=== PATIENT | female | born 1960 | race Caucasian/White ===

== ENCOUNTER 2021-02-07 23:24 | Emergency (ER) | payer MEDICARE, MEDICAID, SELFPAY ==
--- NOTE | ~2021-02-07 | XR_ITS ---
EXAMINATION: XR SHOULDER, LEFT CLINICAL INFORMATION: Dislocation or fracture of the shoulder COMPARISON: Chest x-ray 01/28/2020 TECHNIQUE: Three views of the left shoulder. FINDINGS: There is no fracture. No dislocation. There is degenerative change of the glenohumeral joint. The joint space is narrowed. There are bone spurs of the inferior glenoid and inferior humeral head. The acromioclavicular joint is normal. There are no soft tissue calcifications. XR/XR shoulder LT min 2V IMPRESSION: 1. No acute abnormality. 2. Moderate degenerative change of the glenohumeral joint.
[2021-02-07 23:35] VITALS: BP 127/89; PULSE 95; RESP 16; TEMP 36.7; O2SAT 93; BMI 24.2
[2021-02-07 23:40] VITALS: BP 118/78; PULSE 90; O2SAT 97
--- NOTE | 2021-02-07 23:42 | ED.EXTPRO ---
HPI - Extremity Problem General Chief complaint: Extremity Injury, Upper Stated complaint: L SHOULDER PAIN S/P FALL ? DISLOCATION Time Seen by Provider: 02/07/21 23:41 Source: patient Mode of arrival: EMS Limitations: no limitations History of Present Illness HPI Narrative: Patient with history of recurrent left shoulder dislocation tripped on her is on her puppy and fell on outstretched left arm complaining of pain in the left shoulder as in the past when she had dislocation, was given 100 mcg of fentanyl by EMS. No other injuries Related Data Allergies Allergy/AdvReac Type Severity Reaction Status Date / Time lactose [LACTOSE] Allergy Mild STOMACH Unverified 05/08/20 14:46 UPSET Review of Systems Review of Systems: Yes all other systems are reviewed and are negative PMFSH Social History Social History Advance Directives: No Advance Directives Information Provided: No Physical Exam Vital Signs: Vital Signs: Last Vital Signs Temp 98.1 F 02/07/21 23:35 Pulse 95 02/07/21 23:35 Resp 16 02/07/21 23:35 BP 127/89 02/07/21 23:35 Pulse Ox 93 02/07/21 23:35 Body Mass Index 24.2 Const: General: no acute distress and well developed Orientation/consciousness: patient oriented x3 HENMT: Head: Yes normal to inspection, Yes normocephalic and Yes atraumatic Neck: Neck: Yes full ROM and No midline deformity Chest: Chest palpation & inspection: normal inspection of the chest and normal palpation of entire chest wall Resp: Effort & Inspection: normal respiratory effort Cardio: Rate: regular rate Rhythm: regular rhythm Heart sounds: S1 normal heart sound present and S2 normal heart sound present Neuro: General: patient oriented x3 Extrem: Shoulder/upper arm images: 1. Normal contour of left shoulder normal sensation at the deltoid area painful movements but able to do it MDM - Extremity (Nontraumatic) MDM Narrative Medical decision making narrative: Patient's x-ray negative for fracture dislocation likely contusion will discharge patient home Discharge Plan Discharge Clinical Impression: Contusion of left shoulder Qualifiers: Encounter type: initial encounter Qualified Code(s): S40.012A - Contusion of left shoulder, initial encounter Patient Disposition: Home, Self-Care Instructions: Contusion in Adults (ED) Additional Instructions: Tylenol/Motrin for pain Rest at home Sling for support
--- NOTE | 2021-02-08 00:50 | PC.NURSE ---
PT DID NOT WAIT FOR SLING OR DISCHARGE PAPERWORK.
--- NOTE | 2021-02-08 00:56 | PC.NURSE ---
PT POSSIBLY LEFT WITH IV IN HAND, CALLED PHONE AND ASKED HER TO CALL ME BACK AND LET ME KNOW IF IT WAS REMOVED.
== END 2021-02-08 00:58 | disposition home or self-care (01) ==
PROVIDERS: Emergency Provider Internal Medicine; PCP Internal Medicine
DX: S40.012A Contusion of left shoulder, initial encounter (principal); W01.0XXA Fall on same level from slipping, tripping and stumbling without subsequent striking against object, initial encounter; Y93.9 Activity, unspecified; Y92.9 Unspecified place or not applicable; Y99.9 Unspecified external cause status
CPT/HCPCS: 73030; 99283

== ENCOUNTER 2021-02-10 22:20 | Emergency (ER) | payer MEDICARE, MEDICAID, SELFPAY ==
[2021-02-10 22:25] VITALS: RESP 22; BMI 23.3
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
[2021-02-10 22:37] VITALS: BP 112/69; PULSE 81; RESP 16; TEMP 36.1; O2SAT 99
--- NOTE | 2021-02-10 22:37 | PC.NURSE ---
AMBULATES WITH CANE WITH A STEADY GATE DENIES ANY SI/HI
== END 2021-02-10 23:06 | disposition left against medical advice (07) ==
LOC: HO.ED 23:03
PROVIDERS: Emergency Provider Emergency Medicine
DX: F41.9 Anxiety disorder, unspecified (principal)
CPT/HCPCS: 99283

== ENCOUNTER 2021-04-11 19:40 | Inpatient (IN) | payer MEDICARE, MEDICAID, SELFPAY ==
--- NOTE | ~2021-04-11 | XR_ITS ---
EXAMINATION: XR CHEST CLINICAL INFORMATION: Hypoxia COMPARISON: 02/17/2020 TECHNIQUE: Frontal view of the chest was obtained. FINDINGS: Enteric tube terminates in the stomach. Cardiac leads overlie the chest. The lungs are well expanded. Bronchial wall thickening noted. There is no focal consolidation, edema, or effusion. No pneumothorax. The cardiomediastinal silhouette is within normal limits. No acute osseous abnormality. XR/XR chest 1V IMPRESSION: No dense consolidation. Bronchial wall thickening can be seen with a small airways process such as asthma or atypical/viral infection.
[2021-04-11 20:05] VITALS: BP 105/97; BP 106/70; PULSE 105; PULSE 110; RESP 9; TEMP 37; O2SAT 98; O2SAT 99; BMI 21.7
[2021-04-11 20:19] VITALS: PULSE 104; RESP 9
[2021-04-11 20:33] LABS: MANUAL DIFF FLAG NO
[2021-04-11 20:35] LABS: Basophils Percent Auto 0.4 % (0-2); Eosinophils Absolute Auto 0.1 X10*3/uL (0.0-0.4); Eosinophils Percent Auto 0.6 % (0-4); Hematocrit 38.2 % (37-47); Hemoglobin 12.7 g/dl (12.0-16.0); Imm Gran Abs Auto 0.03 X10*3/uL (0.00-0.03); Imm Gran Pct Auto 0.3 % (0.0-0.4); Lymphocytes Absolute Auto 3.9 X10*3/uL (1.2-4.9); Lymphocytes Percent Auto 40.1 % (20-40); Mean Corpuscular HGB Conc 33.2 g/dl (31.0-35.0); Mean Corpuscular Hemoglobin 31.8 pg (27.0-33.0); Mean Corpuscular Volume 95.5 fL (80-98); Mean Platelet Volume 11.1 fL (9.4-12.3); Monocytes Absolute Auto 0.5 X10*3/uL (0.1-1.2); Monocytes Percent Auto 5.6 % (2-11); Neutrophils Absolute Auto 5.1 X10*3/uL (2.0-8.3); Platelet Count 264 X10*3/uL (160-400); Red Cell Distribution Width 14.4 % (11.0-16.0); White Blood Count 9.6 X10*3/uL (4.8-10.8)
[2021-04-11 20:42] LABS: Ethanol 228 mg/dL
[2021-04-11 20:46] LABS: Alanine Aminotransferase 18 U/L (0-31); Albumin Level 4.3 g/dL (3.5-5.0); Alkaline Phosphatase 100 U/L (39-117); Anion Gap 17 (12-20); Aspartate Amino Transferase 19 U/L (5-31); Bilirubin Total 0.2 mg/dL (0.0-1.0); Blood Urea Nitrogen 10 mg/dL (9-16); Calcium 8.5 mg/dL (8.4-10.2); Carbon Dioxide 18 mmol/L (22-29); Chloride 112 mmol/L (96-108); Creatinine Clr Calc Pharmacy 54.3; Estimated Glomerular Filt Rate > 60; Glucose Random 85 mg/dL (60-115); Potassium 3.6 mmol/L (3.3-5.1); Sodium 143 mmol/L (135-145); Total Protein 7.1 g/dL (6.5-8.0)
[2021-04-11 20:47] LABS: Lactic Acid 2.6 mmol/L (0.5-2.0)
--- NOTE | 2021-04-11 20:47 | PC.NURSE ---
Addendum entered by Jeremiah Villalobos 04/11/21 20:52: emptied 500mL from bladder Original Note: bladder scan completed 541 mL. straight cath done to empty bladder.
[2021-04-11 20:50] LABS: Troponin-I High Sensitivity < 3.5 ng/L (<3.5-17.0)
[2021-04-11 20:56] LABS: Salicylate < 5.0 mg/dL (15-30)
[2021-04-11 20:59] LABS: UPreg QC Valid YES; Urine Pregnancy NEGATIVE (NEGATIVE)
[2021-04-11] MEDS: Naloxone HCl Nasal 4 MG SPRAY NOSTRILALT (21:02)
[2021-04-11 21:12] LABS: COVID-19 Test Negative (Negative); IDNOW Serial# 9DD0AD1C
[2021-04-11 21:18] LABS: Amphetamine Screen Urine Not Detected (Not Detect); Barbiturates, Urine Not Detected (Not Detect); Benzodiazepines Screen Urine Not Detected (Not Detect); Cannabinoid Screen Urine Not Detected (Not Detect); Cocaine Screen Urine Not Detected (Not Detect); Fentanyl, urine Not Detected (Not Detect); Opiate Screen Urine Not Detected (Not Detect); Phencyclidine Screen Urine Not Detected (Not Detect)
--- NOTE | 2021-04-11 21:18 | ED.OVERDOSE ---
HPI - Overdose General Chief Complaint: Overdose Stated Complaint: od Time Seen by Provider: 04/11/21 21:08 Source: EMS Mode of arrival: EMS Limitations: altered mental status History of Present Illness HPI Narrative: Patient is brought to the emergency room by EMS. Seems that the patient overdosed on oxycodone and Percocet, approximately 40-50 pills about 19:30. Patient was given 1 dose of Narcan when she arrived to the emergency room, minimally responsive. Patient wakes up to sternal rub but is still very somnolent. Patient's oxygen saturation in the high 90s on room air. Related Data Allergies Allergy/AdvReac Type Severity Reaction Status Date / Time lactose [LACTOSE] Allergy Mild STOMACH Verified 02/08/21 00:38 UPSET Review of Systems Review of Systems: Yes Unobtainable due to mental condition and Unobtainable due to mental status PMFSH Past Medical History Medical History Anxiety Social History Social History (Updated 02/10/21 @ 22:46 by Mitzy Evans DO) Alcohol intake: current Alcohol intake frequency: holidays/special occasions only Patient Tobacco Use Status: Current someday Tobacco user Use of substances other than those prescribed or required for medical reasons: No Advance Directives: No Advance Directives Information Provided: No Physical Exam Vital Signs: Vital Signs: Last Vital Signs Temp 98.6 F 04/11/21 20:05 Pulse 85 04/11/21 22:00 Resp 18 04/11/21 22:00 BP 119/79 04/11/21 22:00 Pulse Ox 100 04/11/21 22:00 Body Mass Index 21.7 Const: Other: Appearance: Somnolent, responsive to sternal rub, positive gag reflex when NG tube was inserted Eyes: Pupils equal, round and reactive to light. ENT: Pharynx normal. Neck: Normal inspection. Neck supple. No lymph nodes noted. No crepitus CVS: Normal heart rate and rhythm. Pulses normal. Normal S1 and S2 Respiratory: No respiratory distress. Breath sounds normal. No Wheezing. No rales Abdomen: Soft and nontender. No rigidity. No distention. Skin: Skin warm and dry. Normal skin color. Normal skin turgor. Extremities: No lower extremity edema. Neuro: No obvious deficits, patient is very somnolent, difficult to evaluate. Course Course Course Narrative: We received the patient's acetaminophen level, it is 121 at 1.5 hours after ingesting Percocet and oxycodone. Poison control was contacted. At this time, it has been over an hour since the patient ingested the pills, gastric lavage on recommended. Since the patient is very somnolent, activated charcoal is not recommended per poison Control. Into hours will obtain another Tylenol level which will bring patient to 4 hours after ingestion of the medication. If the acetaminophen is a toxic level, we will treat with NAC Patient's acetaminophen level was obtained slightly after 3 hours of ingestion. At this time, the patient's acetaminophen level doubled, now 223. We will not wait for a 4 hour acetaminophen level, we will go ahead and start treatment with NAC I discussed the patient with Dr. Nation. Patient being admitted. At this time, patient is awake, alert, vitals are stable, no abdominal pain. Patient is under Section 12 MDM - Overdose Lab Data Result diagrams: 04/11/21 20:06 04/11/21 20:06 Labs: Lab Results 04/11/21 04/11/21 04/11/21 Range/Units 20:06 20:06 20:06 WBC 9.6 (4.8-10.8) X10*3/uL RBC 4.00 L (4.20-5.50) X10*6/uL Hgb 12.7 (12.0-16.0) g/dl Hct 38.2 (37-47) % MCV 95.5 (80-98) fL MCH 31.8 (27.0-33.0) pg MCHC 33.2 (31.0-35.0) g/dl RDW 14.4 (11.0-16.0) % Plt Count 264 (160-400) X10*3/uL MPV 11.1 (9.4-12.3) fL Immature Gran % (Auto) 0.3 (0.0-0.4) % Neut % (Auto) 53.0 (45-73) % Lymph % (Auto) 40.1 H (20-40) % [place] % (Auto) 5.6 (2-11) % Eos % (Auto) 0.6 (0-4) % Baso % (Auto) 0.4 (0-2) % Lymph # (Auto) 3.9 (1.2-4.9) X10*3/uL [place] # (Auto) 0.5 (0.1-1.2) X10*3/uL Eos # (Auto) 0.1 (0.0-0.4) X10*3/uL Baso # (Auto) 0.0 (0.0-0.2) X10*3/uL Abs Immat Gran (auto) 0.03 (0.00-0.03) X10*3/uL Absolute Neuts (auto) 5.1 (2.0-8.3) X10*3/uL Absolute Nucleated RBC 0.000 (0.0-0.012) X10*3/uL Nucleated RBC % (auto) 0.0 (0.0-0.2) /100WBC PT (9.9-13.0) SEC INR (0.9-1.1) O2 Saturation % ABG pH at Pt Temp (7.35-7.45) ABG pH (Temp Correct) (7.35-7.45) ABG pCO2 at Pt Temp (32-45) mmHg ABG pCO2 (Temp Corrct (32-45) mmHg ABG pO2 at Pt Temp (83-108) mmHg ABG pO2 (Temp Correct (83-108) ABG HCO3 (22-26) mmol/L ABG Base Excess (Actual) mmol/L Sodium 143 (135-145) mmol/L Potassium 3.6 (3.3-5.1) mmol/L Chloride 112 H (96-108) mmol/L Carbon Dioxide 18 L (22-29) mmol/L Anion Gap 17 (12-20) BUN 10 (9-16) mg/dL Creatinine 0.76 (0.5-1.4) mg/dL Estim Creat Clear Calc 54.3 Estimated GFR > 60 Random Glucose 85 (60-115) mg/dL Lactic Acid (0.5-2.0) mmol/L Lactic Acid Fup @ 2Hr (0.5-2.0) mmol/L Calcium 8.5 (8.4-10.2) mg/dL Magnesium (1.6-2.6) mg/dL Total Bilirubin 0.2 (0.0-1.0) mg/dL AST 19 (5-31) U/L ALT 18 (0-31) U/L Alkaline Phosphatase 100 (39-117) U/L Troponin I High Sens (<3.5-17.0) ng/L Total Protein 7.1 (6.5-8.0) g/dL Albumin 4.3 (3.5-5.0) g/dL Urine Test (NEGATIVE) Salicylates < 5.0 L (15-30) mg/dL Urine Opiates Screen (Not Detect) Urine Fentanyl Screen (Not Detect) Acetaminophen 121 H* (<30) mcg/mL Ur Barbiturates Screen (Not Detect) Ur Phencyclidine Scrn (Not Detect) Ur Amphetamines Screen (Not Detect) U Benzodiazepines Scrn (Not Detect) Urine Cocaine Screen (Not Detect) U Marijuana (THC) Screen (Not Detect) Ethyl Alcohol 228 mg/dL COVID-19 ([facility]) (Negative) COVID-19 Clin Com 04/11/21 04/11/21 04/11/21 Range/Units 20:06 20:06 20:49 WBC (4.8-10.8) X10*3/uL RBC (4.20-5.50) X10*6/uL Hgb (12.0-16.0) g/dl Hct (37-47) % MCV (80-98) fL MCH (27.0-33.0) pg MCHC (31.0-35.0) g/dl RDW (11.0-16.0) % Plt Count (160-400) X10*3/uL MPV (9.4-12.3) fL Immature Gran % (Auto) (0.0-0.4) % Neut % (Auto) (45-73) % Lymph % (Auto) (20-40) % [place] % (Auto) (2-11) % Eos % (Auto) (0-4) % Baso % (Auto) (0-2) % Lymph # (Auto) (1.2-4.9) X10*3/uL [place] # (Auto) (0.1-1.2) X10*3/uL Eos # (Auto) (0.0-0.4) X10*3/uL Baso # (Auto) (0.0-0.2) X10*3/uL Abs Immat Gran (auto) (0.00-0.03) X10*3/uL Absolute Neuts (auto) (2.0-8.3) X10*3/uL Absolute Nucleated RBC (0.0-0.012) X10*3/uL Nucleated RBC % (auto) (0.0-0.2) /100WBC PT (9.9-13.0) SEC INR (0.9-1.1) O2 Saturation % ABG pH at Pt Temp (7.35-7.45) ABG pH (Temp Correct) (7.35-7.45) ABG pCO2 at Pt Temp (32-45) mmHg ABG pCO2 (Temp Corrct (32-45) mmHg ABG pO2 at Pt Temp (83-108) mmHg ABG pO2 (Temp Correct (83-108) ABG HCO3 (22-26) mmol/L ABG Base Excess (Actual) mmol/L Sodium (135-145) mmol/L Potassium (3.3-5.1) mmol/L Chloride (96-108) mmol/L Carbon Dioxide (22-29) mmol/L Anion Gap (12-20) BUN (9-16) mg/dL Creatinine (0.5-1.4) mg/dL Estim Creat Clear Calc Estimated GFR Random Glucose (60-115) mg/dL Lactic Acid 2.6 H* (0.5-2.0) mmol/L Lactic Acid Fup @ 2Hr (0.5-2.0) mmol/L Calcium (8.4-10.2) mg/dL Magnesium (1.6-2.6) mg/dL Total Bilirubin (0.0-1.0) mg/dL AST (5-31) U/L ALT (0-31) U/L Alkaline Phosphatase (39-117) U/L Troponin I High Sens < 3.5 (<3.5-17.0) ng/L Total Protein (6.5-8.0) g/dL Albumin (3.5-5.0) g/dL Urine Test (NEGATIVE) Salicylates (15-30) mg/dL Urine Opiates Screen Not Detected (Not Detect) Urine Fentanyl Screen Not Detected (Not Detect) Acetaminophen (<30) mcg/mL Ur Barbiturates Screen Not Detected (Not Detect) Ur Phencyclidine Scrn Not Detected (Not Detect) Ur Amphetamines Screen Not Detected (Not Detect) U Benzodiazepines Scrn Not Detected (Not Detect) Urine Cocaine Screen Not Detected (Not Detect) U Marijuana (THC) Screen Not Detected (Not Detect) Ethyl Alcohol mg/dL COVID-19 ([facility]) (Negative) COVID-19 Clin Com 04/11/21 04/11/21 04/11/21 Range/Units 20:49 20:49 21:52 WBC (4.8-10.8) X10*3/uL RBC (4.20-5.50) X10*6/uL Hgb (12.0-16.0) g/dl Hct (37-47) % MCV (80-98) fL MCH (27.0-33.0) pg MCHC (31.0-35.0) g/dl RDW (11.0-16.0) % Plt Count (160-400) X10*3/uL MPV (9.4-12.3) fL Immature Gran % (Auto) (0.0-0.4) % Neut % (Auto) (45-73) % Lymph % (Auto) (20-40) % [place] % (Auto) (2-11) % Eos % (Auto) (0-4) % Baso % (Auto) (0-2) % Lymph # (Auto) (1.2-4.9) X10*3/uL [place] # (Auto) (0.1-1.2) X10*3/uL Eos # (Auto) (0.0-0.4) X10*3/uL Baso # (Auto) (0.0-0.2) X10*3/uL Abs Immat Gran (auto) (0.00-0.03) X10*3/uL Absolute Neuts (auto) (2.0-8.3) X10*3/uL Absolute Nucleated RBC (0.0-0.012) X10*3/uL Nucleated RBC % (auto) (0.0-0.2) /100WBC PT (9.9-13.0) SEC INR (0.9-1.1) O2 Saturation 100.0 % ABG pH at Pt Temp 7.25 L (7.35-7.45) ABG pH (Temp Correct) 7.27 L (7.35-7.45) ABG pCO2 at Pt Temp 34 (32-45) mmHg ABG pCO2 (Temp Corrct 33 (32-45) mmHg ABG pO2 at Pt Temp 278 H (83-108) mmHg ABG pO2 (Temp Correct 273 H (83-108) ABG HCO3 15 L (22-26) mmol/L ABG Base Excess (Actual) -10.3 mmol/L Sodium (135-145) mmol/L Potassium (3.3-5.1) mmol/L Chloride (96-108) mmol/L Carbon Dioxide (22-29) mmol/L Anion Gap (12-20) BUN (9-16) mg/dL Creatinine (0.5-1.4) mg/dL Estim Creat Clear Calc Estimated GFR Random Glucose (60-115) mg/dL Lactic Acid (0.5-2.0) mmol/L Lactic Acid Fup @ 2Hr (0.5-2.0) mmol/L Calcium (8.4-10.2) mg/dL Magnesium (1.6-2.6) mg/dL Total Bilirubin (0.0-1.0) mg/dL AST (5-31) U/L ALT (0-31) U/L Alkaline Phosphatase (39-117) U/L Troponin I High Sens (<3.5-17.0) ng/L Total Protein (6.5-8.0) g/dL Albumin (3.5-5.0) g/dL Urine Test NEGATIVE (NEGATIVE) Salicylates (15-30) mg/dL Urine Opiates Screen (Not Detect) Urine Fentanyl Screen (Not Detect) Acetaminophen (<30) mcg/mL Ur Barbiturates Screen (Not Detect) Ur Phencyclidine Scrn (Not Detect) Ur Amphetamines Screen (Not Detect) U Benzodiazepines Scrn (Not Detect) Urine Cocaine Screen (Not Detect) U Marijuana (THC) Screen (Not Detect) Ethyl Alcohol mg/dL COVID-19 ([facility]) Negative (Negative) COVID-19 Clin Com See Note 04/11/21 04/11/21 04/11/21 Range/Units 22:45 22:45 22:45 WBC (4.8-10.8) X10*3/uL RBC (4.20-5.50) X10*6/uL Hgb (12.0-16.0) g/dl Hct (37-47) % MCV (80-98) fL MCH (27.0-33.0) pg MCHC (31.0-35.0) g/dl RDW (11.0-16.0) % Plt Count (160-400) X10*3/uL MPV (9.4-12.3) fL Immature Gran % (Auto) (0.0-0.4) % Neut % (Auto) (45-73) % Lymph % (Auto) (20-40) % [place] % (Auto) (2-11) % Eos % (Auto) (0-4) % Baso % (Auto) (0-2) % Lymph # (Auto) (1.2-4.9) X10*3/uL [place] # (Auto) (0.1-1.2) X10*3/uL Eos # (Auto) (0.0-0.4) X10*3/uL Baso # (Auto) (0.0-0.2) X10*3/uL Abs Immat Gran (auto) (0.00-0.03) X10*3/uL Absolute Neuts (auto) (2.0-8.3) X10*3/uL Absolute Nucleated RBC (0.0-0.012) X10*3/uL Nucleated RBC % (auto) (0.0-0.2) /100WBC PT 12.2 (9.9-13.0) SEC INR 1.1 (0.9-1.1) O2 Saturation % ABG pH at Pt Temp (7.35-7.45) ABG pH (Temp Correct) (7.35-7.45) ABG pCO2 at Pt Temp (32-45) mmHg ABG pCO2 (Temp Corrct (32-45) mmHg ABG pO2 at Pt Temp (83-108) mmHg ABG pO2 (Temp Correct (83-108) ABG HCO3 (22-26) mmol/L ABG Base Excess (Actual) mmol/L Sodium (135-145) mmol/L Potassium (3.3-5.1) mmol/L Chloride (96-108) mmol/L Carbon Dioxide (22-29) mmol/L Anion Gap (12-20) BUN (9-16) mg/dL Creatinine (0.5-1.4) mg/dL Estim Creat Clear Calc Estimated GFR Random Glucose (60-115) mg/dL Lactic Acid (0.5-2.0) mmol/L Lactic Acid Fup @ 2Hr 3.0 H* (0.5-2.0) mmol/L Calcium (8.4-10.2) mg/dL Magnesium 1.9 (1.6-2.6) mg/dL Total Bilirubin (0.0-1.0) mg/dL AST (5-31) U/L ALT (0-31) U/L Alkaline Phosphatase (39-117) U/L Troponin I High Sens (<3.5-17.0) ng/L Total Protein (6.5-8.0) g/dL Albumin (3.5-5.0) g/dL Urine Test (NEGATIVE) Salicylates (15-30) mg/dL Urine Opiates Screen (Not Detect) Urine Fentanyl Screen (Not Detect) Acetaminophen 223 H* (<30) mcg/mL Ur Barbiturates Screen (Not Detect) Ur Phencyclidine Scrn (Not Detect) Ur Amphetamines Screen (Not Detect) U Benzodiazepines Scrn (Not Detect) Urine Cocaine Screen (Not Detect) U Marijuana (THC) Screen (Not Detect) Ethyl Alcohol mg/dL COVID-19 ([facility]) (Negative) COVID-19 Clin Com ECG Data Attestation: I personally reviewed and interpreted this ECG as follows: (Normal sinus rhythm, heart rate 100, new T-wave abnormalities in V3 V4, QTC 477) Critical Care Time Critical Care Time Critical Care Time: Yes Total Critical Care Time: 60 Attestation: 60 minutes were spent stabilizing the patient, consoles, in direct patient care Discharge Plan Discharge Clinical Impression: Suicide attempt, Acetaminophen overdose Patient Disposition: Admitted As Inpatient
[2021-04-11 21:23] LABS: Acetaminophen LAB 121 mcg/mL (<30)
--- NOTE | 2021-04-11 21:25 | ECG_ITS ---
Test Reason : OD Blood Pressure : / mmHG Vent. Rate : 100 BPM Atrial Rate : 100 BPM P-R Int : 132 ms QRS Dur : 088 ms QT Int : 370 ms P-R-T Axes : 063 066 077 degrees QTc Int : 477 ms Normal sinus rhythm T wave abnormality, consider anterior ischemia Prolonged QT Abnormal ECG When compared with ECG of 19-FEB-2020 20:16, T wave inversion now evident in Anterior leads Referred By: Enid Cabrera Electronically Signed By:SERENA ECHEVERRIA
--- NOTE | 2021-04-11 21:29 | PC.NURSE ---
Patient getting more drowsy and not responding to sternal rubs. MD aware. Nasogastric tube placed to empty stomach. Patient tolerated the procedure well
[2021-04-11 21:34] VITALS: O2SAT 100
[2021-04-11 21:56] LABS: ABG Refer to POC result
[2021-04-11 21:57] LABS: ABG Base Excess -10.3 mmol/L; ABG HCO3 15 mmol/L (22-26); ABG pCO2 34 mmHg (32-45); ABG pCO2 TC 33 mmHg (32-45); ABG pH 7.25 (7.35-7.45); ABG pH TC 7.27 (7.35-7.45); ABG pO2 278 mmHg (83-108); ABG pO2 TC 273 (83-108)
[2021-04-11 22:00] VITALS: BP 119/79; PULSE 85; RESP 18; O2SAT 100
[2021-04-11 22:31] LABS: Reflex Lactate? Lactic Acid Added
--- NOTE | 2021-04-11 22:40 | PC.NURSE ---
Poison control called for an update on patient. Recommended a pt/inr level and lactic needed to be drawn
[2021-04-11] MEDS: 0.9 % Sodium Chloride 1,000 ML 999 ML IVCONT (22:42)
[2021-04-11 22:59] LABS: INTERNATIONAL NORM RATIO 1.1 (0.9-1.1); Prothrombin Time 12.2 SEC (9.9-13.0)
--- NOTE | 2021-04-11 23:15 | PC.NURSE ---
Patient is more responsive and answering questions. She has more affect and is more oriented.
[2021-04-11 23:26] LABS: Acetaminophen LAB 223 mcg/mL (<30)
[2021-04-11 23:39] LABS: Magnesium 1.9 mg/dL (1.6-2.6)
[2021-04-12] VITALS (15 sets, daily range): BP systolic 107–143; BP diastolic 73–85; PULSE 73–101; RESP 13–20; TEMP 36.4–36.8; O2SAT 97–100
[2021-04-12 00:50] LABS: Reflex Lactate? 2 Y
[2021-04-12] MEDS: 0.9 % Sodium Chloride 1,000 ML 999 ML IVCONT (01:15)
[2021-04-12] MEDS: ondansetron HCL 4 MG/2 ML VIAL IVPUSH ×2 (01:33→08:41)
--- NOTE | 2021-04-12 01:55 | P.HPHOSP_ITS ---
History of Present Illness Date of Service: 04/12/21 Chief Complaint: Suicide attempt, drug overdose 61-year-old female with history of prior suicide attempt, prior inpatient psychiatry admission, depression, anxiety, chronic pain on chronic opioids, low blood pressure, who presented with intentional overdose and suicide attempt. History is from the patient and from ED notes, but patient is a somewhat poor historian, does not answer all of my questions. Patient endorses that she was trying to kill herself today. She states that she had a recent break-up with her boyfriend, currently she has no place to live because she use live with him, she intentionally took some pills (she may have told EMS that it was oxycodone and Percocet about 40-50 pills at about 1930 on 04/11/2021). She did tell me ?my daughter and I... And then she stops talking, then she is tells me ?do not want to talk about it . EN route to the ED she was given 1 dose of Narcan, when she arrived to the ED she was minimally responsive, poison control was contacted, no charcoal or gastric lavage was performed because it had been 4 hours after ingestion. Tylenol levels were taken, the patient was found to have elevated acetaminophen levels, therefore N-acetylcysteine was started on the patient. The patient became more alert, started having dry heaves, NG tube was inserted, and about 500 cc of brown fluid was suctioned from her stomach. By the time I arrived to the patient's room, she was alert, in reported to me what was mentioned above. She says that she was trying to kill herself, and endorse that she has had prior suicide attempt and has been placed in inpatient psychiatry before. However, she does not want to go into any further details with me at this time. In the ED currently, she is satting 97% on 4 L nasal cannula. Otherwise vitals are unremarkable at this time. Her respiratory rate was as low as 9 at 1 point but it is normal now at 18. Pertinent labs in the ED include: ABG with pH of 7.25 and normal pCO2 and O2, but with a bicarb of 15 (representing metabolic acidosis); her lactic acid level was elevated at 2.6 (repeat was 3.0), acetaminophen level is elevated at 223., UDS was otherwise negative. No chest x-ray was performed up to this point, and the patient is requiring 4 L nasal cannula, therefore chest x-ray is ordered by myself and is pending per this note. Otherwise, patient is being admitted for intentional drug overdose, suicide attempt, hypoxia. Review of Systems Review of Systems: I am unable to obtain a review of systems because she is not answering many of my questions. FOR[facility] Medical History (Updated 04/12/21 @ 02:41 by Chuy Blum MD) Anxiety Chronic pain Depression Low blood pressure Pertinent family history: Unable to obatin due to patient not answering my questions. Surgical History (Updated 04/12/21 @ 02:04 by Chuy Blum MD) H/O knee surgery Previous back surgery Social History (Updated 04/12/21 @ 02:04 by Chuy Blum MD) Alcohol intake: current Alcohol intake frequency: holidays/special occasions only Patient Tobacco Use Status: Current someday Tobacco user Use of substances other than those prescribed or required for medical reasons: No Advance Directives: No Advance Directives Information Provided: No Meds Allergies Allergy/AdvReac Type Severity Reaction Status Date / Time lactose [LACTOSE] Allergy Mild STOMACH Verified 02/08/21 00:38 UPSET Active Medications: Current Medications Generic Name Dose Route Start Last Admin Trade Name Freq PRN Reason Stop Dose Admin Acetylcysteine 2,450 mg/ 512.25 mls @ 128.063 mls/hr 04/12/21 01:00 04/12/21 01:16 Dextrose IV 04/12/21 04:59 128.06 mls/hr ONCE ONE Administration Acetylcysteine 4,870 mg/ 1,024.35 mls @ 64.022 mls/hr 04/12/21 05:00 Dextrose IV 04/12/21 20:59 ONCE ONE Sodium Chloride 1,000 mls @ 100 mls/hr 04/12/21 00:45 04/12/21 01:33 Ns IVCONT 04/12/21 10:44 100 mls/hr .Q10H AWA Administration Sodium Bicarbonate 50 meq 04/12/21 00:45 Sodium Bicarbonate 8.4% 50 Meq/50 Ml Vial IVPUSH 04/12/21 02:46 Q2H AWA Sodium Chloride 3 ml 04/12/21 08:00 0.9 % Sodium Chloride Flush 3 Ml Syringe IVFLUSH QSHIFT [facility] Home Medications Medication Instructions Recorded Confirmed Last Taken Type carisoprodol 350 mg tablet 1 tab PO TID PRN 04/12/21 04/12/21 Unknown History desipramine 100 mg tablet 2 tab PO BEDTIME 04/12/21 04/12/21 Unknown History hydroxyzine HCl 25 mg tablet 1 tab PO BEDTIME 04/12/21 04/12/21 Unknown History ibuprofen 800 mg tablet 1 tab PO TID PRN 04/12/21 04/12/21 Unknown History midodrine 2.5 mg tablet 1 tab PO BID 04/12/21 04/12/21 Unknown History naproxen 250 mg tablet 1 tab PO BID 04/12/21 04/12/21 Unknown History oxycodone myristate 18 mg capsule 1 cap PO Q12H 04/12/21 04/12/21 Unknown History sprinkle extended release 12hr(DON'T CRUSH) (Xtampza ER) oxycodone-acetaminophen 7.5 mg-325 1 tab PO Q6H PRN 04/12/21 04/12/21 Unknown History mg tablet pantoprazole 40 mg tablet,delayed 1 tab PO DAILY 04/12/21 04/12/21 Unknown History release topiramate 100 mg tablet 1 tab PO QID 04/12/21 04/12/21 Unknown History Physical Exam Vital Signs and Narrative: Vital Signs: Last Vital Signs Temp 98.6 F 04/11/21 20:05 Pulse 99 04/12/21 00:39 Resp 15 04/12/21 00:39 BP 119/73 04/12/21 00:39 Pulse Ox 97 04/12/21 00:39 Body Mass Index 21.7 Const: General: well developed, alert and other (Tearful during my exam) Orientation/consciousness: oriented to person HENMT: Face and sinus: Yes normal facial exam and Yes face symmetric Mouth: Normal oral and palatal mucosa present and moist mucous membranes Throat: Yes posterior oropharynx normal and Yes tonsils normal Eyes: General: appearance normal, both eyes and all related structures Alignment and Position: alignment normal and position normal Sclerae: sclerae normal Pupils: Equal, round and reactive pupils present EOM: EOMs intact bilaterally Neck: Yes normal visual inspection, Yes full ROM and Yes no lymphadenopathy Lymphatic: no lymphadenopathy noted Resp: Effort & Inspection: normal respiratory effort and able to speak in com plete sentences Auscultation: no crackles, no rales, no rhonchi, no wheezes and diminished lung sounds Cardio: Rate: regular rate Rhythm: regular rhythm Heart sounds: S1 normal heart sound present, S2 normal heart sound present, no murmurs and no rubs GI: Inspection: No distended Palpation (GI): Soft to palpation and nontender Percussion: No tympanic to percussion Auscultation: normal bowel sounds Skin: Rashes: no rashes Trauma: no lacerations or abrasions Wounds: no wounds Neuro: General: oriented to person Cranial nerves: Yes CN's II-XII intact bilaterally, Yes Equal, round and reactive pupils present and Yes Bilaterally intact EOM present Extrem: General: Yes full ROM and Yes no pedal edema Psych: Appearance: disheveled Mental Status: mental status grossly normal Speech and movement: Normal speech and movement present Affect: Sad affect present Attitude: Refuses to answer (attititude/behavior) Thought process: Normal thought process present Results Labs CBC and Chem 7: 04/11/21 20:06 04/11/21 20:06 Labs: Laboratory Results - last 24 hr 04/11/21 04/11/21 04/11/21 20:06 20:06 20:06 MCV 95.5 MCH 31.8 MCHC 33.2 RDW 14.4 Plt Count 264 MPV 11.1 Immature Gran % (Auto) 0.3 Neut % (Auto) 53.0 Lymph % (Auto) 40.1 H [place] % (Auto) 5.6 Eos % (Auto) 0.6 Baso % (Auto) 0.4 Lymph # (Auto) 3.9 [place] # (Auto) 0.5 Eos # (Auto) 0.1 Baso # (Auto) 0.0 Abs Immat Gran (auto) 0.03 Absolute Neuts (auto) 5.1 Absolute Nucleated RBC 0.000 Nucleated RBC % (auto) 0.0 PT INR O2 Saturation ABG pH at Pt Temp ABG pH (Temp Correct) ABG pCO2 at Pt Temp ABG pCO2 (Temp Corrct ABG pO2 at Pt Temp ABG pO2 (Temp Correct ABG HCO3 ABG Base Excess (Actual) Anion Gap 17 Estim Creat Clear Calc 54.3 Estimated GFR > 60 Random Glucose 85 Lactic Acid Lactic Acid Fup @ 2Hr Calcium 8.5 Magnesium Total Bilirubin 0.2 AST 19 ALT 18 Alkaline Phosphatase 100 Troponin I High Sens Total Protein 7.1 Albumin 4.3 Urine Test Salicylates < 5.0 L Urine Opiates Screen Urine Fentanyl Screen Acetaminophen 121 H* Ur Barbiturates Screen Ur Phencyclidine Scrn Ur Amphetamines Screen U Benzodiazepines Scrn Urine Cocaine Screen U Marijuana (THC) Screen Ethyl Alcohol 228 COVID-19 ([facility]NE [facility]IE) COVID-19 [employer] 04/11/21 04/11/21 04/11/21 20:06 20:06 20:49 MCV MCH MCHC RDW Plt Count MPV Immature Gran % (Auto) Neut % (Auto) Lymph % (Auto) [place] % (Auto) Eos % (Auto) Baso % (Auto) Lymph # (Auto) [place] # (Auto) Eos # (Auto) Baso # (Auto) Abs Immat Gran (auto) Absolute Neuts (auto) Absolute Nucleated RBC Nucleated RBC % (auto) PT INR O2 Saturation ABG pH at Pt Temp ABG pH (Temp Correct) ABG pCO2 at Pt Temp ABG pCO2 (Temp Corrct ABG pO2 at Pt Temp ABG pO2 (Temp Correct ABG HCO3 ABG Base Excess (Actual) Anion Gap Estim Creat Clear Calc Estimated GFR Random Glucose Lactic Acid 2.6 H* Lactic Acid Fup @ 2Hr Calcium Magnesium Total Bilirubin AST ALT Alkaline Phosphatase Troponin I High Sens < 3.5 Total Protein Albumin Urine Test Salicylates Urine Opiates Screen Not Detected Urine Fentanyl Screen Not Detected Acetaminophen Ur Barbiturates Screen Not Detected Ur Phencyclidine Scrn Not Detected Ur Amphetamines Screen Not Detected U Benzodiazepines Scrn Not Detected Urine Cocaine Screen Not Detected U Marijuana (THC) Screen Not Detected Ethyl Alcohol COVID-19 ([facility]IE) COVID-19 [employer] 04/11/21 04/11/21 04/11/21 20:49 20:49 21:52 MCV MCH MCHC RDW Plt Count MPV Immature Gran % (Auto) Neut % (Auto) Lymph % (Auto) [place] % (Auto) Eos % (Auto) Baso % (Auto) Lymph # (Auto) [place] # (Auto) Eos # (Auto) Baso # (Auto) Abs Immat Gran (auto) Absolute Neuts (auto) Absolute Nucleated RBC Nucleated RBC % (auto) PT INR O2 Saturation 100.0 ABG pH at Pt Temp 7.25 L ABG pH (Temp Correct) 7.27 L ABG pCO2 at Pt Temp 34 ABG pCO2 (Temp Corrct 33 ABG pO2 at Pt Temp 278 H ABG pO2 (Temp Correct 273 H ABG HCO3 15 L ABG Base Excess (Actual) -10.3 Anion Gap Estim Creat Clear Calc Estimated GFR Random Glucose Lactic Acid Lactic Acid Fup @ 2Hr Calcium Magnesium Total Bilirubin AST ALT Alkaline Phosphatase Troponin I High Sens Total Protein Albumin Urine Test NEGATIVE Salicylates Urine Opiates Screen Urine Fentanyl Screen Acetaminophen Ur Barbiturates Screen Ur Phencyclidine Scrn Ur Amphetamines Screen U Benzodiazepines Scrn Urine Cocaine Screen U Marijuana (THC) Screen Ethyl Alcohol COVID-19 ([facility]) Negative COVID-19 Clin Com See Note 04/11/21 04/11/21 04/11/21 22:45 22:45 22:45 MCV MCH MCHC RDW Plt Count MPV Immature Gran % (Auto) Neut % (Auto) Lymph % (Auto) [place] % (Auto) Eos % (Auto) Baso % (Auto) Lymph # (Auto) [place] # (Auto) Eos # (Auto) Baso # (Auto) Abs Immat Gran (auto) Absolute Neuts (auto) Absolute Nucleated RBC Nucleated RBC % (auto) PT 12.2 INR 1.1 O2 Saturation ABG pH at Pt Temp ABG pH (Temp Correct) ABG pCO2 at Pt Temp ABG pCO2 (Temp Corrct ABG pO2 at Pt Temp ABG pO2 (Temp Correct ABG HCO3 ABG Base Excess (Actual) Anion Gap Estim Creat Clear Calc Estimated GFR Random Glucose Lactic Acid Lactic Acid Fup @ 2Hr 3.0 H* Calcium Magnesium 1.9 Total Bilirubin AST ALT Alkaline Phosphatase Troponin I High Sens Total Protein Albumin Urine Test Salicylates Urine Opiates Screen Urine Fentanyl Screen Acetaminophen 223 H* Ur Barbiturates Screen Ur Phencyclidine Scrn Ur Amphetamines Screen U Benzodiazepines Scrn Urine Cocaine Screen U Marijuana (THC) Screen Ethyl Alcohol COVID-19 ([facility]) COVID-19 Clin Com Assessment and Plan (1) Suicide attempt by drug overdose: Status: Acute (2) Acetaminophen overdose: Qualifiers: Encounter type: initial encounter Injury intent: intentional self-harm Qualified Code(s): T39.1X2A - Poisoning by 4-Aminophenol derivatives, intentional self-harm, initial encounter Status: Acute (3) Hypoxia: Status: Acute (4) Lactic acidosis: Status: Acute (5) Metabolic acidosis: Status: Acute (6) Anxiety: Status: Acute (7) Depression: Status: Acute (8) Chronic pain: Status: Acute (9) Low blood pressure: Status: Acute Suicide attempt by overdose: -EMS reports that the patient took approximately 40-50 pills of oxycodone and Percocet at about 1930 on 04/11/2021 -patient did require 1 Narcan, but otherwise does not need Narcan drip. Currently, she is alert and tearful -she reports that she has had prior suicide attempt, prior inpatient psychiatry hospitalization -she also reports that she had a recent break-up with her boyfriend, and currently does not have a place to live, but otherwise ?does not want to talk about it ? -I am holding her chronic narcotic and acetaminophen containing medications for now -treatment of acetaminophen overdose as per below -psychiatry consult placed Acetaminophen overdose: -secondary to suicide attempt as per above -patient started on N-acetylcysteine drip -patient does not have any biochemical evidence of hepatic failure (INR was normal at 1.1), therefore we will use the 21 hour IV protocol of N- acetylcysteine as follows: 150 mg/kg loading dose over 60 minutes, followed by 50 mg/kg infused over 4 hours, with the final 100 mg/kg infused over the remaining 16 hours. (finishes around 2100 on 04/12/21). -Acetaminophen level ordered for 04/12/21 at 2200. Hypoxia: -currently the patient is on 4 L nasal cannula -I am concerned about aspiration, given the fact that her NG tube is suctioning large amounts of gastric content out of her stomach -chest x-ray ordered (pending per this note) -if chest x-ray is positive for pneumonia, will start IV antibiotics Metabolic acidosis/ Lactic acidosis: -lactic acid level in the ED was 2.6, repeat was 3.0 -ABG revealed pH 7.25 -likely secondary to overdose attempt / acetaminophen toxicity/hypoxia -chest x-ray to rule out pneumonia as per above, if positive for pneumonia then will start on IV antibiotics -lactic acid level and ABG in the morning ordered History of anxiety/ depression: -I am holding all oral medications for now given the fact that she appears to have large amounts of gastric contents being suctioned out of her stomach -currently she appears somewhat tearful when sleepy -morning team can restart patient's home antianxiety medications as needed Chronic pain: -patient has chronic back pain, knee pain, shoulder pain -she was being treated with narcotics, I will hold this for now given her overdose attempt and acetaminophen toxicity as per above -morning team can restart as appropriate, however, patient may need to wait until her acetaminophen levels returned to normal (after the N acetylcysteine drip has completed his course, as per above) Low blood pressure: -patient was taking midodrine at home, however, I have held oral medications for now given the fact that she has large months of gastric contents being section of her stomach -morning team can restart her oral medications as appropriate FEN: NPO, IVF at 75 cc/hr x 1 L total CODE STATUS: FULL CODE DISPO: Admit to Observation (may need to be transitioned to inpatient) Quality Stroke Does the patient have a stroke diagnosis?: No VTE Prior VTE?: No VTE Risk Level:: Medical - low VTE Device Contraindication: N/A - Device Ordered VTE Drug Contraindication: Treatment Not Indicated
[2021-04-12 02:54] LABS: ~Lactic Acid-LAB USE ONLY 2.1 mmol/L (0.5-2.0)
[2021-04-12] MEDS: Sodium Bicarbonate 8.4% 50 MEQ/50 ML VIAL IVPUSH ×2 (03:47→06:17)
[2021-04-12] MEDS: 0.9 % Sodium Chloride 1,000 ML 75 ML IV (04:49)
[2021-04-12 06:13] LABS: Lactic Acid 1.3 mmol/L (0.5-2.0)
[2021-04-12 06:47] LABS: Alanine Aminotransferase 16 U/L (0-31); Albumin Level 3.5 g/dL (3.5-5.0); Alkaline Phosphatase 85 U/L (39-117); Anion Gap 15 (12-20); Aspartate Amino Transferase 16 U/L (5-31); Bilirubin Total < 0.2 mg/dL (0.0-1.0); Blood Urea Nitrogen 6 mg/dL (9-16); Calcium 7.1 mg/dL (8.4-10.2); Carbon Dioxide 18 mmol/L (22-29); Chloride 110 mmol/L (96-108); Creatinine Clr Calc Pharmacy 71.1; Estimated Glomerular Filt Rate > 60; Glucose Random 89 mg/dL (60-115); Potassium 3.2 mmol/L (3.3-5.1); Sodium 140 mmol/L (135-145); Total Protein 5.8 g/dL (6.5-8.0)
--- NOTE | 2021-04-12 07:22 | PC.NURSE ---
report taken from [facility] pt resting in stretcher, alert to verbal stimuli, rr even unlabored on 3l nc. denies pain at this time. affect depressed. sitter in place for safety. awaiting medical admission d/t elevated blood labs r/t medication overdose. rt at bedside for routine bg. wctm for dc needs.
[2021-04-12 07:46] LABS: Analysis Performed on: WHOLE BLOOD; Ethylene Glycol NONE DETECTED (NONE DETECTED); Methyl Alcohol Level NONE DETECTED (NONE DETECTED)
--- NOTE | 2021-04-12 08:02 | PC.NURSE ---
PER POISON CONTROL, PT TO HAVE REPEAT LFT, INR AND TYLENOL LEVEL AT 1930 BEFORE THIRD BAG OF ACETADOTE FINISHES, HOSPITALIST AWARE.
--- NOTE | 2021-04-12 11:22 | P.PNIM_ITS ---
Progress Note: A&P (1) Metabolic acidosis: Status: Acute <La Quiros NP - Last Filed: 04/12/21 12:29> (2) Lactic acidosis: Status: Acute <La Quiros NP - Last Filed: 04/12/21 12:29> (3) Suicide attempt by drug overdose: Status: Acute <La Quiros NP - Last Filed: 04/12/21 12:29> Assessment and Plan: 61 year old women admitted after a suicide attempt by overdose. EMS reports that the patient took approximately 40-50 pills of oxycodone and Percocet at about 1930 on 04/11/2021. Patient did require 1 Narcan, Currently, she is alert and tearful, she reports that she has had prior suicide attempt, prior inpatient psychiatry hospitalization, she also reports that she had a recent break-up with her boyfriend, and currently does not have a place to live, but otherwise ?does not want to talk about it ? Acetaminophen overdose -secondary to suicide attempt as per above -patient started on N-acetylcysteine drip -patient does not have any biochemical evidence of hepatic failure (INR was normal at 1.1), therefore we will use the 21 hour IV protocol of N- acetylcysteine as follows:? 150 mg/kg loading dose over 60 minutes, followed by 50 mg/kg infused over 4 hours, with the final 100 mg/kg infused over the remaining 16 hours. (finishes around 2100 on 04/12/21). -Acetaminophen level ordered for 04/12/21 at 2200. Hypoxia. resolved -currently the patient is on 4 L nasal cannula There was a question of aspiration initially however no consolidation seen Metabolic acidosis/ Lactic acidosis -lactic acid level in the ED was 2.6, repeat was 3.0 -ABG revealed pH 7.25 -likely secondary to overdose attempt / acetaminophen toxicity/hypoxia trend History of anxiety/ depression Hold medications for now in view of NGT Chronic pain -patient has chronic back pain, knee pain, shoulder pain hold narcotic pain medication for now Low blood pressure: BP meds held, restart when BP stable DVT prophyalxis with heparin <La Quiros NP - Last Filed: 04/12/21 12:29> Subjective Subjective Date of Service: 04/12/21 <aL Quiros NP - Last Filed: 04/12/21 12:29> 04/12/21 <Susan Griffin MD - Last Filed: 04/12/21 13:26> Interval History: Follow up acetaminophen OD feeling nausea no longer suicidal <La Quiros NP - Last Filed: 04/12/21 12:29> Physical Exam Vital Signs: Vital Signs: Last Vital Signs Temp 97.6 F 04/12/21 10:53 Pulse 79 04/12/21 10:53 Resp 19 04/12/21 10:53 BP 138/79 04/12/21 10:53 Pulse Ox 100 04/12/21 10:53 Body Mass Index 21.7 <La Quiros NP - Last Filed: 04/12/21 12:29> Appearing in no acute distress NGT in place lung sounds are clear to auscultation heart regular rate rhythm, clear S1, S2 positive bowel sounds, abdomen is soft, nontender neuro patient is alert x3, no focal deficits <La Quiros NP - Last Filed: 04/12/21 12:29> Objective Data Current Medications Generic Name Dose Route Start Last Admin Trade Name Freq PRN Reason Stop Dose Admin Acetylcysteine 4,870 mg/ 1,024.35 mls @ 64.022 mls/hr 04/12/21 05:00 04/12/21 05:35 Dextrose IV 04/12/21 20:59 64.02 mls/hr ONCE ONE Administration Sodium Chloride 1,000 mls @ 75 mls/hr 04/12/21 02:45 04/12/21 04:49 Ns IV 04/12/21 16:04 75 mls/hr .[id number] AWA Administration Ondansetron HCl 4 mg 04/12/21 04:53 04/12/21 08:41 Ondansetron Hcl 4 Mg/2 Ml Vial IVPUSH 4 mg Q6H PRN Administration Nausea Sodium Chloride 3 ml 04/12/21 08:00 04/12/21 07:22 0.9 % Sodium Chloride Flush 3 Ml Syringe IVFLUSH Not Given QSHIFT AWA <La Quiros NP - Last Filed: 04/12/21 12:29> Labs CBC & Chem 7: : 04/11/21 20:06 04/12/21 05:53 <La Quiros NP - Last Filed: 04/12/21 12:29> Labs: Laboratory Results - last 24 hr 04/11/21 04/11/21 04/11/21 20:06 20:06 20:06 MCV 95.5 MCH 31.8 MCHC 33.2 RDW 14.4 Plt Count 264 MPV 11.1 Immature Gran % (Auto) 0.3 Neut % (Auto) 53.0 Lymph % (Auto) 40.1 H [place] % (Auto) 5.6 Eos % (Auto) 0.6 Baso % (Auto) 0.4 Lymph # (Auto) 3.9 [place] # (Auto) 0.5 Eos # (Auto) 0.1 Baso # (Auto) 0.0 Abs Immat Gran (auto) 0.03 Absolute Neuts (auto) 5.1 Absolute Nucleated RBC 0.000 Nucleated RBC % (auto) 0.0 PT INR O2 Saturation ABG pH at Pt Temp ABG pH (Temp Correct) ABG pCO2 at Pt Temp ABG pCO2 (Temp Corrct ABG pO2 at Pt Temp ABG pO2 (Temp Correct ABG HCO3 ABG Base Excess (Actual) Anion Gap 17 Estim Creat Clear Calc 54.3 Estimated GFR > 60 Random Glucose 85 Lactic Acid Lactic Acid Fup @ 2Hr Lactic Acid Fup @ 4Hr Calcium 8.5 Magnesium Total Bilirubin 0.2 AST 19 ALT 18 Alkaline Phosphatase 100 Troponin I High Sens Total Protein 7.1 Albumin 4.3 Urine Test Salicylates < 5.0 L Urine Opiates Screen Urine Fentanyl Screen Acetaminophen 121 H* Ur Barbiturates Screen Ur Phencyclidine Scrn Ur Amphetamines Screen U Benzodiazepines Scrn Urine Cocaine Screen U Marijuana (THC) Screen Ethylene Glycol Volat Analys Perform On Ethyl Alcohol 228 Methyl Alcohol Level COVID-19 ([facility]) COVID-19 Clin Com 04/11/21 04/11/21 04/11/21 20:06 20:06 20:49 MCV MCH MCHC RDW Plt Count MPV Immature Gran % (Auto) Neut % (Auto) Lymph % (Auto) [place] % (Auto) Eos % (Auto) Baso % (Auto) Lymph # (Auto) [place] # (Auto) Eos # (Auto) Baso # (Auto) Abs Immat Gran (auto) Absolute Neuts (auto) Absolute Nucleated RBC Nucleated RBC % (auto) PT INR O2 Saturation ABG pH at Pt Temp ABG pH (Temp Correct) ABG pCO2 at Pt Temp ABG pCO2 (Temp Corrct ABG pO2 at Pt Temp ABG pO2 (Temp Correct ABG HCO3 ABG Base Excess (Actual) Anion Gap Estim Creat Clear Calc Estimated GFR Random Glucose Lactic Acid 2.6 H* Lactic Acid Fup @ 2Hr Lactic Acid Fup @ 4Hr Calcium Magnesium Total Bilirubin AST ALT Alkaline Phosphatase Troponin I High Sens < 3.5 Total Protein Albumin Urine Test Salicylates Urine Opiates Screen Not Detected Urine Fentanyl Screen Not Detected Acetaminophen Ur Barbiturates Screen Not Detected Ur Phencyclidine Scrn Not Detected Ur Amphetamines Screen Not Detected U Benzodiazepines Scrn Not Detected Urine Cocaine Screen Not Detected U Marijuana (THC) Screen Not Detected Ethylene Glycol Volat Analys Perform On Ethyl Alcohol Methyl Alcohol Level COVID-19 (ANNE MARIE) [facility] 04/11/21 04/11/21 04/11/21 20:49 20:49 21:52 MCV MCH MCHC RDW Plt Count MPV Immature Gran % (Auto) Neut % (Auto) Lymph % (Auto) [place] % (Auto) Eos % (Auto) Baso % (Auto) Lymph # (Auto) [place] # (Auto) Eos # (Auto) Baso # (Auto) Abs Immat Gran (auto) Absolute Neuts (auto) Absolute Nucleated RBC Nucleated RBC % (auto) PT INR O2 Saturation 100.0 ABG pH at Pt Temp 7.25 L ABG pH (Temp Correct) 7.27 L ABG pCO2 at Pt Temp 34 ABG pCO2 (Temp Corrct 33 ABG pO2 at Pt Temp 278 H ABG pO2 (Temp Correct 273 H ABG HCO3 15 L ABG Base Excess (Actual) -10.3 Anion Gap Estim Creat Clear Calc Estimated GFR Random Glucose Lactic Acid Lactic Acid Fup @ 2Hr Lactic Acid Fup @ 4Hr Calcium Magnesium Total Bilirubin AST ALT Alkaline Phosphatase Troponin I High Sens Total Protein Albumin Urine Test NEGATIVE Salicylates Urine Opiates Screen Urine Fentanyl Screen Acetaminophen Ur Barbiturates Screen Ur Phencyclidine Scrn Ur Amphetamines Screen U Benzodiazepines Scrn Urine Cocaine Screen U Marijuana (THC) Screen Ethylene Glycol Volat Analys Perform On Ethyl Alcohol Methyl Alcohol Level COVID-19 (ANNE MARIE) Negative [facility] See Note 04/11/21 04/11/2121 22:45 22:45 22:45 MCV MCH MCHC RDW Plt Count MPV Immature Gran % (Auto) Neut % (Auto) Lymph % (Auto) [place] % (Auto) Eos % (Auto) Baso % (Auto) Lymph # (Auto) [place] # (Auto) Eos # (Auto) Baso # (Auto) Abs Immat Gran (auto) Absolute Neuts (auto) Absolute Nucleated RBC Nucleated RBC % (auto) PT 12.2 INR 1.1 O2 Saturation ABG pH at Pt Temp ABG pH (Temp Correct) ABG pCO2 at Pt Temp ABG pCO2 (Temp Corrct ABG pO2 at Pt Temp ABG pO2 (Temp Correct ABG HCO3 ABG Base Excess (Actual) Anion Gap Estim Creat Clear Calc Estimated GFR Random Glucose Lactic Acid Lactic Acid Fup @ 2Hr 3.0 H* Lactic Acid Fup @ 4Hr Calcium Magnesium 1.9 Total Bilirubin AST ALT Alkaline Phosphatase Troponin I High Sens Total Protein Albumin Urine Test Salicylates Urine Opiates Screen Urine Fentanyl Screen Acetaminophen 223 H* Ur Barbiturates Screen Ur Phencyclidine Scrn Ur Amphetamines Screen U Benzodiazepines Scrn Urine Cocaine Screen U Marijuana (THC) Screen Ethylene Glycol Volat Analys Perform On Ethyl Alcohol Methyl Alcohol Level COVID-19 ([facility]) COVID-19 Clin Com 04/11/21 04/12/21 04/12/21 22:45 02:35 05:53 MCV MCH MCHC RDW Plt Count MPV Immature Gran % (Auto) Neut % (Auto) Lymph % (Auto) [place] % (Auto) Eos % (Auto) Baso % (Auto) Lymph # (Auto) [place] # (Auto) Eos # (Auto) Baso # (Auto) Abs Immat Gran (auto) Absolute Neuts (auto) Absolute Nucleated RBC Nucleated RBC % (auto) PT INR O2 Saturation ABG pH at Pt Temp ABG pH (Temp Correct) ABG pCO2 at Pt Temp ABG pCO2 (Temp Corrct ABG pO2 at Pt Temp ABG pO2 (Temp Correct ABG HCO3 ABG Base Excess (Actual) Anion Gap Cancelled Estim Creat Clear Calc Cancelled Estimated GFR Cancelled Random Glucose Cancelled Lactic Acid Lactic Acid Fup @ 2Hr Lactic Acid Fup @ 4Hr 2.1 H* Calcium Cancelled Magnesium Total Bilirubin AST ALT Alkaline Phosphatase Troponin I High Sens Total Protein Albumin Urine Test Salicylates Urine Opiates Screen Urine Fentanyl Screen Acetaminophen Ur Barbiturates Screen Ur Phencyclidine Scrn Ur Amphetamines Screen U Benzodiazepines Scrn Urine Cocaine Screen U Marijuana (THC) Screen Ethylene Glycol NONE DETECTED Volat Analys Perform On WHOLE BLOOD Ethyl Alcohol Methyl Alcohol Level NONE DETECTED COVID-19 ([facility]) COVID-19 Clin Com 04/12/21 04/12/21 05:53 05:53 MCV MCH MCHC RDW Plt Count MPV Immature Gran % (Auto) Neut % (Auto) Lymph % (Auto) [place] % (Auto) Eos % (Auto) Baso % (Auto) Lymph # (Auto) [place] # (Auto) Eos # (Auto) Baso # (Auto) Abs Immat Gran (auto) Absolute Neuts (auto) Absolute Nucleated RBC Nucleated RBC % (auto) PT INR O2 Saturation ABG pH at Pt Temp ABG pH (Temp Correct) ABG pCO2 at Pt Temp ABG pCO2 (Temp Corrct ABG pO2 at Pt Temp ABG pO2 (Temp Correct ABG HCO3 ABG Base Excess (Actual) Anion Gap 15 Estim Creat Clear Calc 71.1 Estimated GFR > 60 Random Glucose 89 Lactic Acid 1.3 Lactic Acid Fup @ 2Hr Lactic Acid Fup @ 4Hr Calcium 7.1 L D Magnesium Total Bilirubin < 0.2 AST 16 ALT 16 Alkaline Phosphatase 85 Troponin I High Sens Total Protein 5.8 L Albumin 3.5 Urine Test Salicylates Urine Opiates Screen Urine Fentanyl Screen Acetaminophen Ur Barbiturates Screen Ur Phencyclidine Scrn Ur Amphetamines Screen U Benzodiazepines Scrn Urine Cocaine Screen U Marijuana (THC) Screen Ethylene Glycol Volat Analys Perform On Ethyl Alcohol Methyl Alcohol Level COVID-19 ([facility]) COVID-19 Clin Com <La Quiros NP - Last Filed: 04/12/21 12:29> Quality Stroke Does the patient have a stroke diagnosis?: No <La Quiros NP - Last Filed: 04/12/21 12:29> VTE Prior VTE?: No <La Quiros NP - Last Filed: 04/12/21 12:29> VTE Risk Level:: Medical - low <La Quiros NP - Last Filed: 04/12/21 12:29> VTE Device Contraindication: N/A - Device Ordered <La Quiros NP - Last Filed: 04/12/21 12:29> VTE Drug Contraindication: Treatment Not Indicated <La Quiros NP - Last Filed: 04/12/21 1 2:29>
[2021-04-12] MEDS: Potassium Chloride Packet 20 MEQ PACKET 40 MEQ PO (12:24)
[2021-04-12] MEDS: Metoclopramide HCl 10 MG/2 ML VIAL 5 MG IVPUSH (12:24)
[2021-04-12 12:54] LABS: Venous Blood Gas Refer to POC result
[2021-04-12 12:56] LABS: VBG Base Excess -4.4 mmol/L; VBG HCO3 20 mmol/L (22-26); VBG pCO2 37 mmHg; VBG pH 7.34 (7.32-7.43); VBG pO2 41 mmHg
[2021-04-12 13:25] LABS: Anion Gap 17 (12-20); Blood Urea Nitrogen 5 mg/dL (9-16); Calcium 7.6 mg/dL (8.4-10.2); Carbon Dioxide 21 mmol/L (22-29); Chloride 105 mmol/L (96-108); Estimated Glomerular Filt Rate > 60; Glucose Random 77 mg/dL (60-115); Potassium 3.5 mmol/L (3.3-5.1); Sodium 139 mmol/L (135-145)
--- NOTE | 2021-04-12 15:14 | MHC.CARE ---
Please consult CARE Team for evaluation when Pt is medically clear.
--- NOTE | 2021-04-12 15:41 | PC.NURSE ---
second call for report unsuccessful
[2021-04-12 19:49] LABS: INTERNATIONAL NORM RATIO 1.1 (0.9-1.1); Prothrombin Time 12.5 SEC (9.9-13.0)
[2021-04-12 19:57] LABS: Acetaminophen LAB < 1 mcg/mL (<30); Alanine Aminotransferase 17 U/L (0-31); Albumin Level 3.7 g/dL (3.5-5.0); Alkaline Phosphatase 91 U/L (39-117); Aspartate Amino Transferase 19 U/L (5-31); Bilirubin Direct 0.2 mg/dL (0.0-0.5); Bilirubin Total 0.4 mg/dL (0.0-1.0); Total Protein 6.3 g/dL (6.5-8.0)
[2021-04-13 05:51] LABS: Hematocrit 35.7 % (37-47); Hemoglobin 12.3 g/dl (12.0-16.0); Mean Corpuscular HGB Conc 34.5 g/dl (31.0-35.0); Mean Corpuscular Hemoglobin 32.2 pg (27.0-33.0); Mean Corpuscular Volume 93.5 fL (80-98); Mean Platelet Volume 11.8 fL (9.4-12.3); Platelet Count 214 X10*3/uL (160-400); Red Blood Count 3.82 X10*6/uL (4.20-5.50); Red Cell Distribution Width 14.4 % (11.0-16.0); White Blood Count 8.2 X10*3/uL (4.8-10.8)
[2021-04-13 06:18] LABS: Alanine Aminotransferase 19 U/L (0-31); Albumin Level 3.5 g/dL (3.5-5.0); Alkaline Phosphatase 92 U/L (39-117); Anion Gap 14 (12-20); Aspartate Amino Transferase 27 U/L (5-31); Bilirubin Direct 0.2 mg/dL (0.0-0.5); Bilirubin Total 0.5 mg/dL (0.0-1.0); Blood Urea Nitrogen 5 mg/dL (9-16); Calcium 8.7 mg/dL (8.4-10.2); Carbon Dioxide 20 mmol/L (22-29); Chloride 106 mmol/L (96-108); Creatinine Clr Calc Pharmacy 71.1; Estimated Glomerular Filt Rate > 60; Glucose Random 87 mg/dL (60-115); Potassium 4.3 mmol/L (3.3-5.1); Sodium 136 mmol/L (135-145); Total Protein 6.4 g/dL (6.5-8.0)
[2021-04-13 07:48] VITALS: BP 148/81; PULSE 77; RESP 20; TEMP 37.1; O2SAT 95
--- NOTE | 2021-04-13 09:20 | MHC.CM.PN ---
CM met with Patient at bedside and addressed IMM with her, providing her with the original and placing a copy on the chart. Patient reports that she lives in a house with her HCP/S.O./Jose Miguel and that she uses a cane to assist with mobility. Patient's Sister/Racquel is also a HCP Agent. Patient is here with Suicide Attempt/Overdose and will need Care Team/BHN Consult when medically cleared. PCP is Dr. Miguel Huertas.Patient uses a cane to assist with mobility.
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
[2021-04-13] MEDS: 0.9 % Sodium Chloride Flush 3 ML SYRINGE IVFLUSH (10:03)
[2021-04-13 11:22] VITALS: BP 133/69; PULSE 92; RESP 20; TEMP 36.8; O2SAT 97
--- NOTE | 2021-04-13 11:30 | MHC.CM.PN ---
Per MEDICAL, Patient is medically cleared for dc and awaits an Inpatient Psych bed. CM will follow PRN; Care Team is actively involved.
--- NOTE | 2021-04-13 11:53 | P.DS_ITS ---
DS: Providers Provider Date of Service: 04/13/21 Date of admission: 04/12/21 00:39 Date of discharge: 04/13/21 Primary care physician: Unknown Physician Admitting clinician: Chuy Blum Attending physician on admission: Chuy Blum Consults: 04/11/21 20:23 Consult to Crisis Stat Reason for consultation: intentional overdose Has provider been notified: Yes 04/12/21 00:42 Consult to Psychiatry Routine Consulting Provider: [facility] Reason for consultation: Suicide attempt, overdose Has provider been notified: No 04/13/21 08:09 Consult to Care Team Routine Comment: Reason for consultation: medically clear, SA Attending physician on discharge: Mohit Sanders Discharging clinician: La Quiros DS: Diagnosis Discharge Diagnosis (1) Suicide attempt by drug overdose: Status: Acute (2) Depression: Status: Acute DS: Medications Discharge Medications Home Medications: Home Medications Medication Instructions Recorded Confirmed carisoprodol 350 mg tablet 1 tab PO TID PRN 04/12/21 04/12/21 desipramine 100 mg tablet 2 tab PO BEDTIME 04/12/21 04/12/21 hydroxyzine HCl 25 mg tablet 1 tab PO BEDTIME 04/12/21 04/12/21 ibuprofen 800 mg tablet 1 tab PO TID PRN 04/12/21 04/12/21 midodrine 2.5 mg tablet 1 tab PO BID 04/12/21 04/12/21 naproxen 250 mg tablet 1 tab PO BID 04/12/21 04/12/21 oxycodone myristate 18 mg capsule 1 cap PO Q12H 04/12/21 04/12/21 sprinkle extended release 12hr(DON'T CRUSH) (Xtampza ER) oxycodone-acetaminophen 7.5 mg-325 1 tab PO Q6H PRN 04/12/21 04/12/21 mg tablet pantoprazole 40 mg tablet,delayed 1 tab PO DAILY 04/12/21 04/12/21 release topiramate 100 mg tablet 1 tab PO QID 04/12/21 04/12/21 DS: Summary Hospital Course Hospital Course: HP as per admitting provider 61-year-old female with history of prior suicide attempt, prior inpatient psychiatry admission, depression, anxiety, chronic pain on chronic opioids, low blood pressure, who presented with intentional overdose and suicide attempt.? History is from the patient and from ED notes, but patient is a somewhat poor historian, does not answer all of my questions. Patient endorses that she was trying to kill herself today.? She states that she had a recent break-up with her boyfriend, currently she has no place to live because she use live with him, she intentionally took some pills (she may have told? EMS that it was oxycodone and Percocet about 40-50 pills at about 1930 on 04/11/2021).? She did tell me ?my daughter and I... And then she stops talking, then she is tells me ?do not want to talk about it . EN route to the ED she was given 1 dose of Narcan, when she arrived to the ED she was minimally responsive, poison control was contacted, no charcoal or gastric lavage was performed because it had been 4 hours after ingestion.? Tylenol levels were taken, the patient was found to have elevated acetaminophen levels, therefore N- acetylcysteine was started on the patient.? The patient became more alert, started having dry heaves, NG tube was inserted, and about 500 cc of brown fluid was suctioned from her stomach. By the time I arrived to the patient's room, she was alert, in reported to me what was mentioned above.? She says that she was trying to kill herself, and endorse that she has had prior suicide attempt and has been placed in inpatient psychiatry before.? However, she does not want to go into any further details with me at this time. In the ED currently, she is satting 97% on 4 L nasal cannula.? Otherwise vitals are unremarkable at this time.? Her respiratory rate was as low as 9 at 1 point but it is normal now at 18. Pertinent labs in the ED include:? ABG with pH of 7.25 and normal pCO2 and O2, but with a bicarb of 15 (representing metabolic acidosis); her lactic acid level was elevated at 2.6 (repeat was 3.0), acetaminophen level is elevated at 223., UDS was otherwise negative. No chest x-ray was performed up to this point, and the patient is requiring 4 L nasal cannula, therefore chest x-ray is ordered by myself and is pending per this note.? Otherwise, patient is being admitted for intentional drug overdose, suicide attempt, hypoxia .? Acetaminophen overdose. Treated with narcan on route to ED. NGT placed, activated charcoal administered. Initial acetaminophen level 121 then 223, yesterday down to <1. CBC, BMP, LFT's within acceptable limits. No further episodes of nausea or vomiting. Medically cleared. Seen by [facility] with rec for psychiatric admission. Time Spent with Patient Time attestation: Total time spent providing and/or coordinating discharge services: Discharge coordination time: Greater than 30 minutes Quality: Stroke Does the patient have a stroke diagnosis?: No Physical Exam Vital Signs: Vital Signs: Last Vital Signs Temp 98.2 F 04/13/21 11:22 Pulse 92 04/13/21 11:22 Resp 20 04/13/21 11:22 BP 133/69 04/13/21 11:22 Pulse Ox 97 04/13/21 11:22 Body Mass Index 21.7 DS: Data Data Completed and Pending Labs on day of discharge: Laboratory Results - last 24 hr 04/12/21 04/12/21 04/12/21 12:41 12:50 19:28 WBC RBC Hgb Hct MCV MCH MCHC RDW Plt Count MPV Absolute Nucleated RBC Nucleated RBC % (auto) PT 12.5 INR 1.1 VBG pH 7.34 VBG pCO2 37 VBG pO2 41 VBG HCO3 20 L VBG O2 Saturation 66.0 VBG Base Excess -4.4 Sodium 139 Potassium 3.5 Chloride 105 Carbon Dioxide 21 L Anion Gap 17 BUN 5 L Creatinine 0.59 Estim Creat Clear Calc 70.0 Estimated GFR > 60 Random Glucose 77 Calcium 7.6 L D Total Bilirubin Direct Bilirubin AST ALT Alkaline Phosphatase Total Protein Albumin Acetaminophen 04/12/21 04/13/21 04/13/21 19:28 04:59 04:59 WBC 8.2 RBC 3.82 L Hgb 12.3 Hct 35.7 L MCV 93.5 MCH 32.2 MCHC 34.5 RDW 14.4 Plt Count 214 MPV 11.8 Absolute Nucleated RBC 0.000 Nucleated RBC % (auto) 0.0 PT INR VBG pH VBG pCO2 VBG pO2 VBG HCO3 VBG O2 Saturation VBG Base Excess Sodium 136 Potassium 4.3 D Chloride 106 Carbon Dioxide 20 L Anion Gap 14 BUN 5 L Creatinine 0.58 Estim Creat Clear Calc 71.1 Estimated GFR > 60 Random Glucose 87 Calcium 8.7 D Total Bilirubin 0.4 0.5 Direct Bilirubin 0.2 0.2 AST 19 27 D ALT 17 19 Alkaline Phosphatase 91 92 Total Protein 6.3 L 6.4 L Albumin 3.7 3.5 Acetaminophen < 1 Discharge Plan Discharge Anticipated Discharge Date/Time: 04/13/21 11:50 Patient Disposition: Xfer Psychiatric Hosp Discharge Diagnosis: Acetaminophen overdose Referrals: Physician,Unknown [Physician] - 1 Week Discharge Medications: Continued carisoprodol 350 mg tablet 1 tab PO TID PRN (Reason: Pain, Moderate) RF: 0 ibuprofen 800 mg tablet 1 tab PO TID PRN (Reason: Muscle Spasm) RF: 0 naproxen 250 mg tablet 1 tab PO BID RF: 0 pantoprazole 40 mg tablet,delayed release (DR/EC) 1 tab PO DAILY RF: 0 hydroxyzine HCl 25 mg tablet 1 tab PO BEDTIME RF: 0 midodrine 2.5 mg tablet 1 tab PO BID RF: 0 oxycodone-acetaminophen 7.5-325 mg tablet 1 tab PO Q6H PRN (Reason: pain) RF: 0 topiramate 100 mg tablet 1 tab PO QID RF: 0 desipramine 100 mg tablet 2 tab PO BEDTIME RF: 0 Xtampza ER 18 mg cap,sprinkl,ER12hr(DONT CRUSH) 1 cap PO Q12H RF: 0 Discharge Orders: Discharge Order (Routine); Ordered 04/13/21 Ordered By: La Quiros Diet: advance to usual diet Activity on Discharge: As tolerated Stand Alone Forms: Patient Portal Discharge page
[2021-04-13 15:07] VITALS: BP 146/79; PULSE 80; RESP 20; TEMP 36.9; O2SAT 98
== END 2021-04-13 15:48 | DRG 918 ==
LOC: HO.ED 04-12 00:04 → HO.EDOVER 04-12 01:58 → HO.IMC 04-12 14:44
PROVIDERS: Nurse Practitioner Acute Care; Admitting Provider Internal Medicine; Emergency Provider Emergency Medicine; PCP Internal Medicine; Visit Provider Family Medicine
DX: T40.2X2A Poisoning by other opioids, intentional self-harm, initial encounter (principal); E87.2 Acidosis; R45.851 Suicidal ideations; T39.1X2A Poisoning by 4-Aminophenol derivatives, intentional self-harm, initial encounter; Y92.9 Unspecified place or not applicable; G89.29 Other chronic pain; R09.02 Hypoxemia; I95.9 Hypotension, unspecified; F41.9 Anxiety disorder, unspecified; F32.9 Major depressive disorder, single episode, unspecified; Z20.822 Contact with and (suspected) exposure to COVID-19; Z79.1 Long term (current) use of non-steroidal anti-inflammatories (NSAID); Z87.891 Personal history of nicotine dependence; Z79.899 Other long term (current) drug therapy; Z91.5 Personal history of self-harm
CPT/HCPCS: 36415; 36600; 71045; 80048; 80053; 80076; 80143; 80179; 80307; 80320; 81025; 82077; 82693; 82803; 83605; 83735; 84484; 85025; 85027; 85610; 87635; 93005; 96361; 96365; 96366; 96375; 99220; 99285; 99291; J0132; J2405; J2765

== ENCOUNTER 2021-04-13 15:45 | Inpatient (IN) | payer MEDICARE, SELFPAY ==
[2021-04-13 15:58] VITALS: BP 147/86; PULSE 77; RESP 18; TEMP 36.7
[2021-04-13] MEDS: Topiramate 100 MG TABLET PO ×2 (18:25→20:18)
[2021-04-13 18:29] VITALS: BMI 22.2
--- NOTE | 2021-04-13 18:53 | PC.NURSE ---
Admission Note: 61 y/o female admitted from [facility] after an intentional OD on oxycodone and Percocet. Pt is cooperative with admission, signed a CV but is asking about discharge. Pt remains in room after assessment. Pt has had previous OD attempts and inpatient stays.
[2021-04-13 20:15] VITALS: BP 119/78; PULSE 85; RESP 18; TEMP 36.2; O2SAT 99
[2021-04-13] MEDS: hydrOXYzine HCL 25 MG TABLET PO (20:19)
[2021-04-13] MEDS: NaPROXEN 250 MG TABLET PO (20:51)
[2021-04-13 22:16] VITALS: BP 165/81; PULSE 73
[2021-04-13] MEDS: Midodrine HCl 2.5 MG TABLET PO (22:16)
[2021-04-14] MEDS: Omeprazole 20 MG CAPSULE.DR PO (06:38)
[2021-04-14 07:16] LABS: Hemoglobin 13.5 g/dl (12.0-16.0); Mean Corpuscular HGB Conc 33.8 g/dl (31.0-35.0); Mean Corpuscular Hemoglobin 31.8 pg (27.0-33.0); Mean Corpuscular Volume 94.1 fL (80-98); Mean Platelet Volume 11.1 fL (9.4-12.3); Platelet Count 246 X10*3/uL (160-400); Red Blood Count 4.25 X10*6/uL (4.20-5.50); Red Cell Distribution Width 14.4 % (11.0-16.0); White Blood Count 8.3 X10*3/uL (4.8-10.8)
[2021-04-14 07:40] LABS: Alanine Aminotransferase 20 U/L (0-31); Albumin Level 4.1 g/dL (3.5-5.0); Alkaline Phosphatase 103 U/L (39-117); Anion Gap 15 (12-20); Aspartate Amino Transferase 21 U/L (5-31); Bilirubin Direct 0.3 mg/dL (0.0-0.5); Bilirubin Total 0.7 mg/dL (0.0-1.0); Blood Urea Nitrogen 9 mg/dL (9-16); Calcium 9.6 mg/dL (8.4-10.2); Carbon Dioxide 21 mmol/L (22-29); Chloride 107 mmol/L (96-108); Creatinine Clr Calc Pharmacy 101.2; Estimated Glomerular Filt Rate > 60; Glucose Random 95 mg/dL (60-115); Potassium 3.6 mmol/L (3.3-5.1); Sodium 139 mmol/L (135-145); Total Protein 6.9 g/dL (6.5-8.0)
[2021-04-14 08:54] VITALS: BP 108/84; PULSE 99
[2021-04-14] MEDS: Midodrine HCl 2.5 MG TABLET PO ×2 (08:54→20:16)
[2021-04-14] MEDS: Topiramate 100 MG TABLET PO ×4 (08:54→20:16)
[2021-04-14] MEDS: NaPROXEN 250 MG TABLET PO ×2 (08:55→20:16)
[2021-04-14 09:00] VITALS: BP 108/84; PULSE 99
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
[2021-04-14 18:00] VITALS: BP 135/91; PULSE 78; RESP 16; TEMP 36.9; O2SAT 98
[2021-04-14 20:16] VITALS: BP 135/91; PULSE 78
[2021-04-14] MEDS: hydrOXYzine HCL 25 MG TABLET PO (20:17)
[2021-04-15] MEDS: Omeprazole 20 MG CAPSULE.DR PO (06:44)
[2021-04-15] MEDS: NaPROXEN 250 MG TABLET PO ×2 (08:09→21:00)
[2021-04-15 08:10] VITALS: BP 154/94; PULSE 83
[2021-04-15] MEDS: Midodrine HCl 2.5 MG TABLET PO ×2 (08:10→21:01)
[2021-04-15] MEDS: Topiramate 100 MG TABLET PO ×4 (08:11→21:02)
[2021-04-15 08:42] LABS: Hematocrit 39.8 % (37-47); Hemoglobin 13.3 g/dl (12.0-16.0); Mean Corpuscular HGB Conc 33.4 g/dl (31.0-35.0); Mean Corpuscular Hemoglobin 31.4 pg (27.0-33.0); Mean Corpuscular Volume 93.9 fL (80-98); Mean Platelet Volume 11.3 fL (9.4-12.3); Platelet Count 237 X10*3/uL (160-400); Red Blood Count 4.24 X10*6/uL (4.20-5.50); Red Cell Distribution Width 14.2 % (11.0-16.0); White Blood Count 7.4 X10*3/uL (4.8-10.8)
[2021-04-15 09:43] LABS: Alanine Aminotransferase 20 U/L (0-31); Albumin Level 4.1 g/dL (3.5-5.0); Alkaline Phosphatase 96 U/L (39-117); Anion Gap 14 (12-20); Aspartate Amino Transferase 20 U/L (5-31); Bilirubin Direct 0.3 mg/dL (0.0-0.5); Bilirubin Total 0.6 mg/dL (0.0-1.0); Blood Urea Nitrogen 11 mg/dL (9-16); Calcium 9.3 mg/dL (8.4-10.2); Carbon Dioxide 19 mmol/L (22-29); Chloride 110 mmol/L (96-108); Creatinine Clr Calc Pharmacy 61.6; Estimated Glomerular Filt Rate > 60; Glucose Random 89 mg/dL (60-115); Sodium 139 mmol/L (135-145); Total Protein 6.9 g/dL (6.5-8.0)
[2021-04-15 10:00] VITALS: BP 154/94; PULSE 83; TEMP 36.3
--- NOTE | 2021-04-15 14:41 | HO.PSYCHPN ---
Subjective Subjective Date of Service: 04/15/21 Reason For Visit: suicidal attempt, tylenol overdose Interim History: pt reports she is feeling better in terms of mood. c/o pain, asking for pain meds. visit with bakari went well. pt also notes that her therapist went on maternity leave just before her overdose. interested in [facility]. states she had been in [place] [facility] [place] prior to her going to [place] and she had been doing quite well in it. she would like to restart that PHP. no other requests or complaints. per staff, pt has been active and appropriate. anxious, some depression. tearful last NOC. 12/29 anxiety, no SI/HI. denies AVH. c/o 05/31 pain. slept well overnight. Mental Status Exam Mental Status Exam Narrative: appropriately dressed and groomed. cooperative with interview. no PMA/PMR. speech soft, nml amount, latency. thoughts linear and logical. affect full range, non-labile. mood improved. no SI/HI/AVH expressed. Diagnostics Vital Signs (24Hr): Vital Signs - 24 hr 04/14/21 18:00 04/14/21 20:16 04/15/21 08:10 Temperature 98.4 F Pulse Rate 78 78 83 Respiratory Rate 16 Blood Pressure 135/91 H 135/91 H 154/94 H Pulse Oximetry 98 04/15/21 10:00 Temperature 97.3 F Pulse Rate 83 Respiratory Rate Blood Pressure 154/94 H Pulse Oximetry Body Mass Index 22.2 Labs Results: 04/15/21 08:22 04/15/21 08:22 Labs: Laboratory Results - last 48 hr 04/14/21 04/14/21 04/15/21 07:04 07:04 08:22 WBC 8.3 7.4 RBC 4.25 4.24 Hgb 13.5 13.3 Hct 40.0 39.8 MCV 94.1 93.9 MCH 31.8 31.4 MCHC 33.8 33.4 RDW 14.4 14.2 Plt Count 246 237 MPV 11.1 11.3 Absolute Nucleated RBC 0.000 0.000 Nucleated RBC % (auto) 0.0 0.0 Sodium 139 Potassium 3.6 Chloride 107 Carbon Dioxide 21 L Anion Gap 15 BUN 9 D Creatinine 0.66 Estim Creat Clear Calc 101.2 Estimated GFR > 60 Random Glucose 95 Calcium 9.6 D Total Bilirubin 0.7 Direct Bilirubin 0.3 AST 21 ALT 20 Alkaline Phosphatase 103 Total Protein 6.9 Albumin 4.1 04/15/21 08:22 WBC RBC Hgb Hct MCV MCH MCHC RDW Plt Count MPV Absolute Nucleated RBC Nucleated RBC % (auto) Sodium 139 Potassium 4.0 Chloride 110 H Carbon Dioxide 19 L Anion Gap 14 BUN 11 Creatinine 0.67 Estim Creat Clear Calc 61.6 Estimated GFR > 60 Random Glucose 89 Calcium 9.3 Total Bilirubin 0.6 Direct Bilirubin 0.3 AST 20 ALT 20 Alkaline Phosphatase 96 Total Protein 6.9 Albumin 4.1 Medications Medications Current Medications Generic Name Dose Route Start Last Admin Trade Name Freq PRN Reason Stop Dose Admin Al Hydroxide/Mg Hydroxide 30 ml 04/13/21 17:43 Magnesium Hydrox/Alum Hydrox 30 Ml Oral.Susp PO Q6H PRN Heartburn/Nausea Carisoprodol 350 mg 04/13/21 17:46 Carisoprodol 350 Mg Tablet PO TID PRN Pain, Moderate Hydroxyzine HCl 25 mg 04/13/21 17:43 Hydroxyzine Hcl 25 Mg Tablet PO BEDTIME PRN Anxiety Hydroxyzine HCl 25 mg 04/13/21 21:00 04/14/21 20:17 Hydroxyzine Hcl 25 Mg Tablet PO 25 mg BEDTIME AWA Administration Magnesium Hydroxide 30 ml 04/13/21 17:43 Milk Of Magnesia 30 Ml Oral.Susp PO DAILY PRN Constipation Midodrine 2.5 mg 04/13/21 21:00 04/15/21 08:10 Midodrine Hcl 2.5 Mg Tablet PO 2.5 mg BID AWA Administration Naproxen 250 mg 04/13/21 21:00 04/15/21 08:09 Naproxen 250 Mg Tablet PO 250 mg BID AWA Administration Non-Formulary Medication 1 cap 04/13/21 17:46 Oxycodone Myristate [Xtampza Er] PO Q12H [facility] Non-Formulary Medication 2 tab 04/13/21 21:00 Desipramine PO BEDTIME AWA Omeprazole 20 mg 04/14/21 06:30 04/15/21 06:44 Omeprazole 20 Mg Capsule.Dr PO 20 mg DAILY@0630 [facility] Administration Oxycodone HCl 7.5 mg 04/13/21 17:58 Oxycodone Hcl Immed Release 5 Mg Tablet PO Q6H PRN pain Topiramate 100 mg 04/13/21 17:46 04/15/21 14:07 Topiramate 100 Mg Tablet PO 100 mg QID AWA Administration Trazodone HCl 50 mg 04/13/21 17:43 Trazodone Hcl 50 Mg Tablet PO BEDTIME PRN Insomnia Allergies Allergies Allergy/AdvReac Type Severity Reaction Status Date / Time lactose [LACTOSE] Allergy Mild STOMACH Verified 04/12/21 15:01 UPSET Assessment & Plan Assessment & Plan (1) Depression: Status: Acute Code(s): F32.9 - Major depressive disorder, single episode, unspecified Assessment and Plan: improving (2) Chronic pain: Status: Acute Code(s): G89.29 - Other chronic pain Assessment and Plan: 05/31 per pt. not getting home regimen. Assessment and Plan: continue home psych meds for now. pt now aware of oxycodone PRNs. pt has been informed to request her NF home pain medication be brought in so we can administer it here. planning to DC to [facility] once deemed stable. Greater than 50% of the session was spent on counseling and/or coordination of care Reason for contiued inpatient stay Substantial Risk for: harm to self and rapid decompensation
[2021-04-15] MEDS: oxyCODONE HCl Immed Release 5 MG TABLET 7.5 MG PO ×2 (14:46→21:12)
[2021-04-15] MEDS: Venlafaxine HCl ER 37.5 MG CAP.ER.24H PO (17:45)
[2021-04-15 21:01] VITALS: BP 134/93; PULSE 87
[2021-04-15] MEDS: hydrOXYzine HCL 25 MG TABLET PO (21:02)
[2021-04-15 21:06] VITALS: BP 134/93; PULSE 87; TEMP 36.4; O2SAT 100
[2021-04-15] MEDS: carisoprodoL 350 MG TABLET PO (21:13)
[2021-04-15] MEDS: Milk of Magnesia 30 ML ORAL.SUSP PO (21:13)
[2021-04-16] MEDS: Omeprazole 20 MG CAPSULE.DR PO (06:32)
[2021-04-16] MEDS: oxyCODONE HCl Immed Release 5 MG TABLET 7.5 MG PO ×2 (07:00→14:34)
[2021-04-16] MEDS: NaPROXEN 250 MG TABLET PO ×2 (08:22→21:25)
[2021-04-16 08:24] VITALS: BP 139/90; PULSE 95
[2021-04-16] MEDS: Venlafaxine HCl ER 75 MG CAP.ER.24H PO (08:24)
[2021-04-16] MEDS: Topiramate 100 MG TABLET PO ×4 (08:24→21:25)
[2021-04-16 08:27] VITALS: BP 139/90; PULSE 95; RESP 18; TEMP 36.4; O2SAT 98
--- NOTE | 2021-04-16 12:03 | P.PNPSI_ITS ---
Subjective Subjective Date of Service: 04/16/21 Reason For Visit: suicidal attempt, tylenol overdose Interim History: pt c/o pain, getting oxycodone PRNs as soon as they become available. dep/anx 4. c/o back/neck/knee pain. per SW contact, pt will be able to discharge tomorrow with PHP intake in place. on interview with pt calm, and pleasant, states her pain is much better since she has been aware to ask for oxycodone PRNs. informed pt to bring in her home pain meds and we c an administer them to her here, but we can't get them otherwise as they are NF. pt expressed understanding. also informed pt of tomorrow's planned discharge, with which she is in agreement. she is very pleased by the news. Mental Status Exam Mental Status Exam Narrative: appropriately dressed and groomed. cooperative with interview. no PMA/PMR. speech soft, nml amount, latency. thoughts linear and logical. affect full range, non-labile. mood good. no SI/HI/AVH. Diagnostics Vital Signs (24Hr): Vital Signs - 24 hr 04/15/21 21:01 04/15/21 21:06 04/16/21 08:24 Temperature 97.5 F Pulse Rate 87 87 95 Respiratory Rate Blood Pressure 134/93 H 134/93 H 139/90 H Pulse Oximetry 100 04/16/21 08:27 Temperature 97.6 F Pulse Rate 95 Respiratory Rate 18 Blood Pressure 139/90 H Pulse Oximetry 98 Body Mass Index 22.2 Labs Results: 04/15/21 08:22 04/15/21 08:22 Labs: Laboratory Results - last 48 hr 04/15/21 04/15/21 08:22 08:22 WBC 7.4 RBC 4.24 Hgb 13.3 Hct 39.8 MCV 93.9 MCH 31.4 MCHC 33.4 RDW 14.2 Plt Count 237 MPV 11.3 Absolute Nucleated RBC 0.000 Nucleated RBC % (auto) 0.0 Sodium 139 Potassium 4.0 Chloride 110 H Carbon Dioxide 19 L Anion Gap 14 BUN 11 Creatinine 0.67 Estim Creat Clear Calc 61.6 Estimated GFR > 60 Random Glucose 89 Calcium 9.3 Total Bilirubin 0.6 Direct Bilirubin 0.3 AST 20 ALT 20 Alkaline Phosphatase 96 Total Protein 6.9 Albumin 4.1 Medications Medications Current Medications Generic Name Dose Route Start Last Admin Trade Name Freq PRN Reason Stop Dose Admin Al Hydroxide/Mg Hydroxide 30 ml 04/13/21 17:43 Magnesium Hydrox/Alum Hydrox 30 Ml Oral.Susp PO Q6H PRN Heartburn/Nausea Carisoprodol 350 mg 04/13/21 17:46 04/15/21 21:13 Carisoprodol 350 Mg Tablet PO 350 mg TID PRN Administration Pain, Moderate Hydroxyzine HCl 25 mg 04/13/21 17:43 Hydroxyzine Hcl 25 Mg Tablet PO BEDTIME PRN Anxiety Hydroxyzine HCl 25 mg 04/13/21 21:00 04/15/21 21:02 Hydroxyzine Hcl 25 Mg Tablet PO 25 mg BEDTIME AWA Administration Magnesium Hydroxide 30 ml 04/13/21 17:43 04/15/21 21:13 Milk Of Magnesia 30 Ml Oral.Susp PO 30 ml DAILY PRN Administration Constipation Midodrine 2.5 mg 04/13/21 21:00 04/16/21 08:24 Midodrine Hcl 2.5 Mg Tablet PO Not Given BID AWA Naproxen 250 mg 04/13/21 21:00 04/16/21 08:22 Naproxen 250 Mg Tablet PO 250 mg BID AWA Administration Non-Formulary Medication 1 cap 04/13/21 17:46 Oxycodone Myristate [Xtampza Er] PO Q12H AWA Non-Formulary Medication 2 tab 04/13/21 21:00 Desipramine PO BEDTIME AWA Omeprazole 20 mg 04/14/21 06:30 04/16/21 06:32 Omeprazole 20 Mg Capsule.Dr PO 20 mg DAILY@0630 AWA Administration Oxycodone HCl 7.5 mg 04/13/21 17:58 04/16/21 07:00 Oxycodone Hcl Immed Release 5 Mg Tablet PO 7.5 mg Q6H PRN Administration pain Topiramate 100 mg 04/13/21 17:46 04/16/21 08:24 Topiramate 100 Mg Tablet PO 100 mg QID AWA Administration Trazodone HCl 50 mg 04/13/21 17:43 Trazodone Hcl 50 Mg Tablet PO BEDTIME PRN Insomnia Venlafaxine HCl 75 mg 04/16/21 09:00 04/16/21 08:24 Venlafaxine Hcl Er 75 Mg Cap.Er.24h PO 75 mg DAILY AWA Administration Allergies Allergies Allergy/AdvReac Type Severity Reaction Status Date / Time lactose [LACTOSE] Allergy Mild STOMACH Verified 04/12/21 15:01 UPSET Assessment & Plan Assessment & Plan (1) Depression: Status: Acute Code(s): F32.9 - Major depressive disorder, single episode, unspecified Assessment and Plan: improving since admission (2) Chronic pain: Status: Acute Code(s): G89.29 - Other chronic pain Assessment and Plan: stable. Assessment and Plan: effexor trial, as pt did not feel cymbalta was effective. oxycodone PRNs for pain, get pt's own medication. plan for PHP/IOP once stable. tentative DC tomorrow. Greater than 50% of the session was spent on counseling and/or coordination of care Reason for contiued inpatient stay Substantial Risk for: harm to self
--- NOTE | 2021-04-16 14:37 | HE.PHANOTE ---
Non-formulary medications, nurse reports that patient plans on having the medications brought in by family. Mary Rojas, ServandoD
[2021-04-16] MEDS: carisoprodoL 350 MG TABLET PO ×2 (15:38→21:28)
[2021-04-16 21:25] VITALS: BP 142/94; PULSE 85
[2021-04-16] MEDS: Midodrine HCl 2.5 MG TABLET PO (21:25)
[2021-04-16] MEDS: hydrOXYzine HCL 25 MG TABLET PO (21:25)
[2021-04-16 21:29] VITALS: TEMP 35.7; O2SAT 98
[2021-04-17] MEDS: oxyCODONE HCl Immed Release 5 MG TABLET 7.5 MG PO ×2 (03:27→11:31)
[2021-04-17] MEDS: carisoprodoL 350 MG TABLET PO (08:15)
[2021-04-17 08:16] VITALS: BP 134/84; PULSE 83; RESP 18; TEMP 37; O2SAT 99
[2021-04-17] MEDS: Topiramate 100 MG TABLET PO ×2 (08:16→12:12)
[2021-04-17] MEDS: Omeprazole 20 MG CAPSULE.DR PO (08:16)
[2021-04-17] MEDS: NaPROXEN 250 MG TABLET PO (08:16)
[2021-04-17] MEDS: Venlafaxine HCl ER 75 MG CAP.ER.24H PO (08:16)
--- NOTE | 2021-04-17 10:24 | P.DS_ITS ---
DS: Providers Provider Date of Service: 04/17/21 Date of admission: 04/13/21 15:45 Primary care physician: Unknown Physician Consults: 04/13/21 17:46 Consult to Care Team Routine Comment: Reason for consultation: medically clear, SA Consult to Crisis Stat Reason for consultation: intentional overdose Has provider been notified: Yes Consult to Psychiatry Routine Consulting Provider: [facility] Reason for consultation: Suicide attempt, overdose Has provider been notified: No DS: Diagnosis Discharge Diagnosis (1) Depression: Status: Acute (2) Chronic pain: Status: Acute DS: Medications Discharge Medications Home Medications: Home Medications Medication Instructions Recorded Confirmed carisoprodol 350 mg tablet 1 tab PO TID PRN 04/12/21 04/12/21 desipramine 100 mg tablet 2 tab PO BEDTIME 04/12/21 04/12/21 hydroxyzine HCl 25 mg tablet 1 tab PO BEDTIME 04/12/21 04/12/21 ibuprofen 800 mg tablet 1 tab PO TID PRN 04/12/21 04/12/21 midodrine 2.5 mg tablet 1 tab PO BID 04/12/21 04/12/21 naproxen 250 mg tablet 1 tab PO BID 04/12/21 04/12/21 oxycodone myristate 18 mg capsule 1 cap PO Q12H 04/12/21 04/12/21 sprinkle extended release 12hr(DON'T CRUSH) (Xtampza ER) oxycodone-acetaminophen 7.5 mg-325 1 tab PO Q6H PRN 04/12/21 04/12/21 mg tablet pantoprazole 40 mg tablet,delayed 1 tab PO DAILY 04/12/21 04/12/21 release topiramate 100 mg tablet 1 tab PO QID 04/12/21 04/12/21 Previous Rx's Medication Instructions Recorded venlafaxine 75 mg capsule,extended 75 mg PO DAILY 30 Days #30 cap 04/17/21 release 24 hr Mental Status Exam Mental Status Exam Narrative: appropriately dressed and groomed. cooperative with interview. no PMA/PMR. speech soft, nml amount, latency. thoughts linear and logical. affect full range, non-labile. mood good. no SI/HI/AVH. Data Data Completed and Pending Completed studies during hospitalization [Text1]: 04/14/21 04/14/21 04/15/21 07:04 07:04 08:22 WBC 8.3 7.4 RBC 4.25 4.24 Hgb 13.5 13.3 Hct 40.0 39.8 MCV 94.1 93.9 MCH 31.8 31.4 MCHC 33.8 33.4 RDW 14.4 14.2 Plt Count 246 237 MPV 11.1 11.3 Absolute Nucleated RBC 0.000 0.000 Nucleated RBC % (auto) 0.0 0.0 Sodium 139 Potassium 3.6 Chloride 107 Carbon Dioxide 21 L Anion Gap 15 BUN 9 D Creatinine 0.66 Estim Creat Clear Calc 101.2 Estimated GFR > 60 Random Glucose 95 Calcium 9.6 D Total Bilirubin 0.7 Direct Bilirubin 0.3 AST 21 ALT 20 Alkaline Phosphatase 103 Total Protein 6.9 Albumin 4.1 04/15/21 08:22 WBC RBC Hgb Hct MCV MCH MCHC RDW Plt Count MPV Absolute Nucleated RBC Nucleated RBC % (auto) Sodium 139 Potassium 4.0 Chloride 110 H Carbon Dioxide 19 L Anion Gap 14 BUN 11 Creatinine 0.67 Estim Creat Clear Calc 61.6 Estimated GFR > 60 Random Glucose 89 Calcium 9.3 Total Bilirubin 0.6 Direct Bilirubin 0.3 AST 20 ALT 20 Alkaline Phosphatase 96 Total Protein 6.9 Albumin 4.1 DS: Summary Hospital Course Hospital Course: per Geo GUTIÉRREZ Consult note: Ms. Andrade is a 61-year-old female, with history of prior as I attempts, prior inpatient level of care admissions, depression, anxiety, chronic pain on opioids, low blood pressure, who presented to this facility with intentional overdose and suicide attempt with opioid pain medications.? She reports having longstanding chronic pain in her knee, back, and shoulder. I evaluated the patient this morning and upon interview she reports she is ?okay now, I want to go home ?.? Patient was lying in bed, appears stated age, wearing hospital gown.? Good eye contact, attentive to conversation.? No tics or tremors noted.? No abnormal involuntary movements noted. She has been medically cleared status post overdose.? She reports having a history of several SI attempts in the past, with subsequent inpatient level of care admissions.? She was admitted to in 2018, after a suicide by overdose attempt when her .? She also had been in admitted 20 years ago after an SI attempt with overdose. She currently denies any SI, HI.? She denies any type of SIB, either in past or present.? Denies any type of auditory, visual, tactile hallucinations.? Did not appear to be in responding to internal stimuli.? She reports multiple stressors, including recently reporting her daughter to [facility] in [place] regarding her 1 year-old grandson, due to suspected neglect and substance use. She was quite distraught regarding the situation, as her daughter fled and she and patient's grandson cannot be located. Patient also describes stressors of going through the estate process regarding her that several years ago, and an argument that occurred between patient and her boyfriend on this past Tuesday, which prompted her to take between 40-50 pills, a mix of her oxycodone and percocets.? She then went to a bar that she frequents, and told friends there what she had done. They activated EMS.? When asked about going to the bar and any alcohol use, she states that she does not drink much, and that ?I do not have the shakes or anything ?.? However a chart review does show significant history of alcohol use disorder. ? Although patient does acknowledge that this was an intentional attempt to complete a suicide, she appeared to show little insight into the seriousness of the situation, and poor judgment.? Patient? appears to have a history of impulsive overdoses, as noted in review of chart. She says that she plans to go home with her boyfriend, and that he will be there.? She did not acknowledge anything further regarding their relationship except that they had had a significant argument on Tuesday. She was unable to tell me her current medications, but states she believes she takes some sort of antidepressant at nighttime.? A chart review showed the T[employer]ycl[employer] desipramine 100 mg at HS.? She also stated that she had been taking Cymbalta for some time, and approximately 1 month ago decided to stop taking it.? When asked why, she stated I did not like the weight gain .? She states she does not have a psychiatric prescriber, but that she gets her medications from her primary care physician.? She says she does have a therapist, Paola Tsai, but that she recently went out on maternity leave. Past Psychiatric History: [facility] 20 years ago, after SI attempt by overdose.? Reports [facility] admission 2018, after SI attempt by overdose.? Chart search shows inpatient on [facility] in 2020, then step down to PHP after SI attempt by OD.? Chart shows history of [facility] for both therapy and psych prescriber.? day2: pt reports she is feeling better in terms of mood.? c/o pain, asking for pain meds.? visit with [facility] went well.? pt also notes that her therapist went on maternity leave just before her overdose.? interested in PHP.? states she had be en in a PHP through [facility] for quite a while prior to her going to [place] and she had been doing quite well in it.? she would like to restart that PHP.? no other requests or complaints.? per staff, pt has been active and appropriate.? anxious, some depression.? tearful last NOC.? 12/29 anxiety, no SI/HI.? denies AVH.? c/o 05/31 pain.? slept well overnight. day3: pt c/o pain, getting oxycodone PRNs as soon as they become available.? dep/anx 4.? c/o back/neck/knee pain.? per SW contact, pt will be able to discharge tomorrow with PHP intake in place.? on interview with pt calm, and pleasant, states her pain is much better since she has been aware to ask for oxycodone PRNs.? informed pt to bring in her home pain meds and we can administer them to her here, but we can't get them otherwise as they are NF.? pt expressed understanding.? also informed pt of tomorrow's planned discharge, with which she is in agreement.? she is very pleased by the news. day4: pt continues feeling well, discharging today at noon. per staff, obtained [place] opioid from [facility] last NOC. no other notable events or behaviors. Time Spent with Patient Time attestation: Total time spent providing and/or coordinating discharge services: Discharge Plan Discharge Patient Disposition: Home, Self-Care Discharge Diagnosis: Major Depressive Disorder Referrals: Partial Hospitalization Program - [facility] [Other] - 1 Week ([facility] Appointment) Ani Fatima (Therapist) [Other] - 04/22/21 1:00 pm (In office visit) Marilee Conrad (Psychiatry) [Other] - 05/12/21 11:20 am (Telehealth Appointment Medication Management ) Miguel Huertas MD [Physician] - 1 Week Discharge Medications: New venlafaxine 75 mg Capsule,Extended Release 24hr 75 mg PO DAILY 30 Days Qty: 30 RF: 0 Continued carisoprodol 350 mg tablet 1 tab PO TID PRN (Reason: Pain, Moderate) RF: 0 ibuprofen 800 mg tablet 1 tab PO TID PRN (Reason: Muscle Spasm) RF: 0 naproxen 250 mg tablet 1 tab PO BID RF: 0 pantoprazole 40 mg tablet,delayed release (DR/EC) 1 tab PO DAILY RF: 0 hydroxyzine HCl 25 mg tablet 1 tab PO BEDTIME RF: 0 midodrine 2.5 mg tablet 1 tab PO BID RF: 0 oxycodone-acetaminophen 7.5-325 mg tablet 1 tab PO Q6H PRN (Reason: pain) RF: 0 topiramate 100 mg tablet 1 tab PO QID RF: 0 desipramine 100 mg tablet 2 tab PO BEDTIME RF: 0 Xtampza ER 18 mg cap,sprinkl,ER12hr(DONT CRUSH) 1 cap PO Q12H RF: 0 Discharge Orders: Discharge Order (Routine); Ordered 04/17/21 Ordered By: Alexis Obrien Diet: advance to usual diet Activity on Discharge: As tolerated Stand Alone Forms: Patient Portal Discharge page, Community Support Care Plan Goals: maintain independent living in the outpatient setting Health Concerns: chronic pain Plan of Treatment: engage in PHP after discharge from hospital. please contact [facility] to discuss start date. Assessment: not at imminent risk of harm to self or others Discharge Date/Time: 04/17/21 12:17
--- NOTE | 2021-04-17 12:23 | PC.NURSE ---
PT aware and ready for discharge. Pt mood is bright, pt denies SI/HI, pt is future focused and looking forward to going home. PT is aware of scheduled appointments and understands that her PCP will call her with an appointment, PT will follow up if needed. Discharge instructions discussed, all questions answered. Pt belongings returned, pt ambulated off unit steadily using walker.
== END 2021-04-17 12:17 | disposition home or self-care (01) | DRG 881 ==
PROVIDERS: Admitting Provider Psychiatry & Neurology Psychiatry; Visit Provider Psychiatry & Neurology Psychiatry
DX: F32.9 Major depressive disorder, single episode, unspecified (principal); R45.851 Suicidal ideations; G89.29 Other chronic pain; Z87.891 Personal history of nicotine dependence; Z91.5 Personal history of self-harm; Z79.1 Long term (current) use of non-steroidal anti-inflammatories (NSAID); Z79.899 Other long term (current) drug therapy
CPT/HCPCS: 36415; 80048; 80076; 85027

== ENCOUNTER 2021-05-15 12:54 | Emergency (ER) | payer MEDICARE, MEDICAID, SELFPAY ==
[2021-05-15 13:06] VITALS: BP 110/80; BP 120/89; PULSE 105; PULSE 96; RESP 18; TEMP 36.1; O2SAT 94; O2SAT 96; BMI 22.1
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
[2021-05-15] MEDS: Haloperidol Lactate 5 MG/ML VIAL IM (14:19)
[2021-05-15] MEDS: LORazepam 2 MG/ML VIAL IM (14:20)
--- NOTE | 2021-05-15 14:20 | PC.NURSE ---
1350 - pt reported wanting to leave, pt oriented to person only, getting out of bed and attempting to elope. pt informed if she can get a ride to pick her up she can go. pt was resistant to redirection, unwilling to stay in bed. pt kicking out and thrashing at staff. 5mg Haldol and 2mg Ativan ordered and administered in the L thigh per Marcos GAYTAN. pt continued to kick out and thrash at staff, unwilling to copperate and stay in bed. pt unable to tell staff what happened that caused her to go to the ER. decision made to place pt in 4 point restraint.
--- NOTE | 2021-05-15 14:46 | PC.NURSE ---
pt removed from all restraints, VSS, pt is sleeping at this time
[2021-05-15 15:03] VITALS: BP 109/70; PULSE 110; RESP 20; O2SAT 93
[2021-05-15 15:27] LABS: MANUAL DIFF FLAG NO
[2021-05-15 15:37] LABS: Basophils Absolute Auto 0.1 X10*3/uL (0.0-0.2); Basophils Percent Auto 0.5 % (0-2); Eosinophils Percent Auto 0.2 % (0-4); Hemoglobin 13.1 g/dl (12.0-16.0); Imm Gran Abs Auto 0.02 X10*3/uL (0.00-0.03); Imm Gran Pct Auto 0.2 % (0.0-0.4); Lymphocytes Absolute Auto 2.6 X10*3/uL (1.2-4.9); Lymphocytes Percent Auto 27.6 % (20-40); Mean Corpuscular HGB Conc 33.6 g/dl (31.0-35.0); Mean Corpuscular Volume 95.4 fL (80-98); Mean Platelet Volume 10.9 fL (9.4-12.3); Monocytes Absolute Auto 0.6 X10*3/uL (0.1-1.2); Monocytes Percent Auto 6.2 % (2-11); Neutrophils Absolute Auto 6.2 X10*3/uL (2.0-8.3); Neutrophils Percent Auto 65.3 % (45-73); Platelet Count 297 X10*3/uL (160-400); Red Blood Count 4.09 X10*6/uL (4.20-5.50); Red Cell Distribution Width 16.3 % (11.0-16.0); White Blood Count 9.5 X10*3/uL (4.8-10.8)
[2021-05-15 15:44] LABS: Ethanol 307 mg/dL
[2021-05-15 15:47] VITALS: BP 115/76; PULSE 101; RESP 20; O2SAT 96
[2021-05-15 15:47] LABS: Alanine Aminotransferase 24 U/L (0-31); Albumin Level 4.1 g/dL (3.5-5.0); Alkaline Phosphatase 104 U/L (39-117); Anion Gap 17 (12-20); Aspartate Amino Transferase 31 U/L (5-31); Bilirubin Direct < 0.2 mg/dL (0.0-0.5); Bilirubin Total 0.2 mg/dL (0.0-1.0); Blood Urea Nitrogen 11 mg/dL (9-16); Calcium 8.6 mg/dL (8.4-10.2); Carbon Dioxide 19 mmol/L (22-29); Chloride 113 mmol/L (96-108); Estimated Glomerular Filt Rate > 60; Glucose Random 97 mg/dL (60-115); Potassium 3.5 mmol/L (3.3-5.1); Sodium 145 mmol/L (135-145); Total Protein 6.8 g/dL (6.5-8.0)
--- NOTE | 2021-05-15 20:52 | PC.NURSE ---
Pt found walking in hallway with steady, independent gait, searching for exit. Security and this RN guided pt back to her stretcher. Pt [id number]. Pt stating I want to leave, I'm ready to go. This RN made Dr Layton aware who states that pt needs a sober ride home. This RN contacted pt's s/o Sourav who is listed under contacts in chart. Sourav states he is able to leave the house now to pick pt up to provide safe/sober ride home. Pt made aware and is agreeable to wait for Sourav's arrival before leaving ED to . Pt provided PO and is tolerating it at this time. Pt's stretcher low locked, rails raised, remains visible to staff.
[2021-05-15 21:12] VITALS: PULSE 114; RESP 20; O2SAT 96
[2021-05-15 21:14] VITALS: BP 121/89; PULSE 100; TEMP 36.9; O2SAT 95
== END 2021-05-15 21:22 | disposition home or self-care (01) ==
PROVIDERS: Physician Assistant; Emergency Provider Emergency Medicine; PCP Internal Medicine
DX: F10.129 Alcohol abuse with intoxication, unspecified (principal); Y90.8 Blood alcohol level of 240 mg/100 ml or more; Z87.891 Personal history of nicotine dependence; Z79.899 Other long term (current) drug therapy; Z71.41 Alcohol abuse counseling and surveillance of alcoholic
CPT/HCPCS: 36415; 80053; 82077; 82248; 85025; 96372; 99284; J2060

== ENCOUNTER 2021-06-29 16:48 | Emergency (ER) | payer MEDICARE, SELFPAY ==
[2021-06-29] VITALS (10 sets, daily range): BP systolic 89–144; BP diastolic 57–65; PULSE 79–108; RESP 16–20; O2SAT 95–98; BMI 21.0
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
[2021-06-29] MEDS: Haloperidol Lactate 5 MG/ML VIAL IM (17:47)
[2021-06-29] MEDS: LORazepam 2 MG/ML VIAL IM (17:47)
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
--- NOTE | 2021-06-29 19:47 | PC.NURSE ---
pt minimaly responsive to painfull stimuli, perrla bilat. pt is obtunded but toleraing oral secretions and resps are non labored. pt is dressed and inb a hallway bed but no sign of trauma is noted. verbal order obtained for 1 l sns from md goyal. 20 ga iov est in r wrist and ns up at a controled rate.
--- NOTE | 2021-06-29 21:01 | PC.NURSE ---
no change in pt assesment/presentation.
--- NOTE | 2021-06-29 22:18 | PC.NURSE ---
pt drowsy but easily arousable, follows simple commands. resps remain nonlabored,
[2021-06-30] VITALS: BP 120/81; PULSE 79; RESP 16; O2SAT 98
[2021-06-30 02:00] VITALS: PULSE 78; RESP 16; O2SAT 98
[2021-06-30 04:00] VITALS: BP 121/83; PULSE 82; RESP 16; O2SAT 97
[2021-06-30 06:00] VITALS: BP 126/84; PULSE 85; RESP 16; O2SAT 98
--- NOTE | 2021-06-30 07:42 | PC.NURSE ---
ambulates independently with steady gait
== END 2021-06-30 07:57 | disposition home or self-care (01) ==
PROVIDERS: Emergency Provider Emergency Medicine; PCP Internal Medicine
DX: F10.129 Alcohol abuse with intoxication, unspecified (principal); Y90.8 Blood alcohol level of 240 mg/100 ml or more; Z79.899 Other long term (current) drug therapy; Z71.41 Alcohol abuse counseling and surveillance of alcoholic
CPT/HCPCS: 96372; 99284; 99285; J2060

== ENCOUNTER 2021-07-06 04:09 | Emergency (ER) | payer MEDICARE, SELFPAY ==
--- NOTE | ~2021-07-06 | CT_ITS ---
EXAMINATION: NONCONTRAST HEAD CT NONCONTRAST CERVICAL SPINE CT INDICATION INFORMATION: Fall. Hematoma COMPARISON: 02/17/2020 TECHNIQUE: Separate noncontrast CT examinations of the head and cervical spine were performed. Coronal and sagittal images were created for each examination at the technologist workstation. This CT examination was performed using dose optimization techniques as appropriate, variously including the following: *Automated exposure control *Adjustment of mA and/or kV according to patient size (this includes techniques or standardized protocols for targeted exams where dose is matched to indication/reason for exam; i.e. extremities or head) *Use of iterative reconstruction technique DLP: 791 mGy-cm FINDINGS: Head: There is no evidence of acute intracranial hemorrhage or territorial infarction. No abnormal mass effect or midline shift is seen. Scott to white matter differentiation is well preserved. No extra-axial fluid collections are identified. No hydrocephalus. No significant volume loss. There is no abnormal attenuation within the brain parenchyma. There is prominent soft tissue swelling/subgaleal hematoma overlying the right parietal region. No calvarial fracture. The mastoid air cells and visualized portions of the paranasal sinuses are well aerated. Cervical spine: Anterior cervical fusion at C3. Dextroscoliosis of the cervical spine. There is otherwise anatomic alignment of the vertebral bodies and posterior elements. The atlantoaxial and atlantooccipital articulations are intact. Vertebral body heights are maintained. There is multilevel intervertebral disc space narrowing with endplate osteophyte formation and facet arthropathy. No evidence of acute fracture. No prevertebral soft tissue swelling. Mild centrilobular emphysema of the lung apices with biapical pleural scarring.. The thyroid gland is unremarkable. CT/CT cervical spine wo con IMPRESSION: 1. No acute intracranial finding. 2. No acute fracture or malalignment of the cervical spine. Intact fusion hardware. Mild degenerative changes.
[2021-07-06 04:25] VITALS: BP 115/85; BP 96/59; PULSE 90; PULSE 95; RESP 16; TEMP 36.8; O2SAT 95; O2SAT 99; BMI 20.7
[2021-07-06 05:31] LABS: Appearance Urine CLEAR; Color Urine YELLOW; Glucose Urine UA NEG (NEG); Leukocyte Esterase Urine NEG (NEG); Nitrite Urine NEG (NEG); Specific Gravity - Urine <= 1.005 (1.005-1.025); Urine Blood NEG (NEG); Urine Ketones NEG (NEG); Urine Protein NEG (NEG-TRACE)
[2021-07-06] MEDS: Acetaminophen 325 MG TABLET 975 MG PO (05:36)
[2021-07-06] MEDS: Ibuprofen 400 MG TABLET PO (05:36)
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
[2021-07-06 06:02] LABS: Ethanol 161 mg/dL
[2021-07-06 06:19] VITALS: BP 95/60; PULSE 98; RESP 16; O2SAT 94
--- NOTE | 2021-07-06 06:21 | PC.NURSE ---
PT is ready for discharge. PT is under the influence of alcohol and needs to coordinate a ride home. Uber ride contacted and PT waiting for their arrival. PT VSS, resting in POC.
== END 2021-07-06 06:34 | disposition home or self-care (01) ==
PROVIDERS: Emergency Provider Student in an Organized Health Care Education/Training Program; PCP Internal Medicine
DX: F10.229 Alcohol dependence with intoxication, unspecified (principal); Y90.9 Presence of alcohol in blood, level not specified; S00.03XA Contusion of scalp, initial encounter; W17.89XA Other fall from one level to another, initial encounter; Y93.9 Activity, unspecified; Y92.9 Unspecified place or not applicable; Y99.9 Unspecified external cause status
CPT/HCPCS: 36415; 70450; 72125; 81003; 82077; 99284

== ENCOUNTER 2021-07-21 03:41 | Emergency (ER) | payer MEDICARE, SELFPAY ==
--- NOTE | ~2021-07-21 | XR_ITS ---
EXAMINATION: XR SHOULDER, LEFT CLINICAL INFORMATION: Fall. Pain. COMPARISON: X-ray dated 02/07/2021. TECHNIQUE: AP external rotation, Grashey, scapular Y, and axillary views of the left shoulder. FINDINGS: The bones and soft tissues are normal. No fracture. Glenohumeral and acromioclavicular alignment is anatomic with normal joint space. No abnormal soft tissue calcifications. The imaged portions of the lungs are clear. XR/XR shoulder LT min 2V IMPRESSION: No acute radiographic abnormality of the left shoulder.
--- NOTE | ~2021-07-21 | CT_ITS ---
EXAMINATION: CT CHEST WITHOUT CONTRAST CLINICAL INFORMATION: Fall. Pain. COMPARISON: Chest radiograph 04/12/2021. TECHNIQUE: Multidetector volumetric CT imaging of the chest was done. Axial MIP volume rendering provided. Sagittal and coronal reformatted images were obtained. This CT examination was performed using dose optimization techniques as appropriate, variously including the following: *Automated exposure control *Adjustment of mA and/or kV according to patient size (this includes techniques or standardized protocols for targeted exams where dose is matched to indication/reason for exam; i.e. extremities or head) *Use of iterative reconstruction technique DLP: 221 mGy-cm FINDINGS: Lungs: Biapical subpleural and pleural coarse reticular opacities are noted within the lungs. Minimal bibasilar dependent atelectasis of the lungs is visualized. Mild attenuation of the pulmonary parenchyma suspicious for mild centrilobular emphysema. Mediastinum: No lymphadenopathy. Normal caliber of the thoracic aorta. Normal heart size. No pericardial thickening or fluid collections. Pleura: No pleural effusions. No pneumothoraces. CHEST WALL: No axillary lymphadenopathy. No subcutaneous emphysema. No soft tissue inflammatory changes. Visualized abdominal structures: Spleen is grossly normal in appearance. The liver is partially included in the image [id number] and demonstrates no gross abnormalities. Normal appearance of the adrenal glands. Osseous structures: Minimal cortical irregularity is present in association with the sternum (series 9 image 47, series 7 image 31). No definitive adjacent soft tissue inflammatory changes are visualized. CT/CT chest wo con IMPRESSION: -Minimal focal cortical irregularity of the sternum which may represent a minimally displaced fracture. No soft tissue inflammatory changes are present adjacent to this finding to definitively confirm acute sternal injury. Consider further evaluation with direct clinical correlation. No additional acute abnormalities visualized. -Chronic biapical pleural parenchymal scarring of the lungs. -Mild centrilobular emphysema.
[2021-07-21 04:27] VITALS: BP 118/84; PULSE 84; RESP 16; TEMP 36.8; O2SAT 98; BMI 19.2
--- NOTE | 2021-07-21 04:32 | PC.NURSE ---
Security at bedside for changeover. Pt carrying a large bag of medications. 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 3 medications were placed in a sealed envelope and secured in [facility] with all other belongings.
--- NOTE | 2021-07-21 04:44 | PC.NURSE ---
medical technologist chief at beside for labs and Covid swab. Plan to obtain urine when able.
[2021-07-21 04:48] LABS: Hematocrit 39.5 % (37.0-47.0); Hemoglobin 12.9 g/dl (12.0-16.0); Mean Corpuscular HGB Conc 32.7 g/dl (31.0-35.0); Mean Corpuscular Hemoglobin 32.3 pg (27.0-33.0); Mean Corpuscular Volume 98.8 fL (80.0-98.0); Mean Platelet Volume 10.3 fL (9.4-12.3); Platelet Count 306 X10*3/uL (160-400); Red Cell Distribution Width 14.6 % (11.0-16.0); White Blood Count 6.8 X10*3/uL (4.8-10.8)
[2021-07-21 05:02] LABS: COVID-19 Test Negative (Negative); IDNOW Serial# 9DD0AD1C
[2021-07-21 05:17] LABS: Ethanol 210 mg/dL
[2021-07-21 05:20] LABS: Alanine Aminotransferase 17 U/L (0-31); Albumin Level 4.2 g/dL (3.5-5.0); Alkaline Phosphatase 138 U/L (39-117); Anion Gap 13 (12-20); Aspartate Amino Transferase 22 U/L (5-31); Bilirubin Total 0.2 mg/dL (0.0-1.0); Blood Urea Nitrogen 8 mg/dL (9-16); Carbon Dioxide 22 mmol/L (22-29); Chloride 113 mmol/L (96-108); Estimated Glomerular Filt Rate > 60; Glucose Random 95 mg/dL (60-115); Potassium 4.1 mmol/L (3.3-5.1); Sodium 144 mmol/L (135-145); Total Protein 7.4 g/dL (6.5-8.0)
--- NOTE | 2021-07-21 06:04 | PC.NURSE ---
Susanne online referral completed by LYUDMILA Sun.
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
--- NOTE | 2021-07-21 10:01 | PC.NURSE ---
Addendum entered by Kingsley Barney 07/21/21 10:02: PHONE # is [phone] Original Note: SISTER LAZARO HAMMOND CALLED 911 TO HAVE PT BROUGHT HERE, SHE UIS VERY CONCERNED AND WOULD LIKE TO SPEAK W HUNTER
--- NOTE | 2021-07-21 10:32 | PC.NURSE ---
CONTINUES TO SLEEP, SKIN WPD, NAD
[2021-07-21 12:05] VITALS: BP 118/80; PULSE 87; TEMP 36.8; O2SAT 97
== END 2021-07-21 14:01 | disposition home or self-care (01) ==
PROVIDERS: Emergency Provider Student in an Organized Health Care Education/Training Program; PCP Internal Medicine
DX: F32.9 Major depressive disorder, single episode, unspecified (principal); R45.851 Suicidal ideations; F10.220 Alcohol dependence with intoxication, uncomplicated; Y90.7 Blood alcohol level of 200-239 mg/100 ml; Z20.822 Contact with and (suspected) exposure to COVID-19; Z91.51 Personal history of suicidal behavior; Z79.899 Other long term (current) drug therapy
CPT/HCPCS: 36415; 71250; 73030; 80053; 82077; 85027; 87635; 99283; 99284

== ENCOUNTER 2021-07-28 | Outpatient (REF) | payer MEDICARE, MEDICAID, SELFPAY | END 2021-07-28 00:01 | disposition home or self-care (01) | LOC: HO.LNP | PROVIDERS: Visit Provider Physician Assistant Medical | DX: L03.90 Cellulitis, unspecified (principal) | CPT/HCPCS: 87071; 87077; 87186; 87205 ==

== ENCOUNTER 2023-12-15 15:39 | Outpatient (AMB) | payer OTHER, MEDICAID, SELFPAY ==
--- OUTSIDE RECORDS SUMMARY | 2023-12-15 15:40 | XMS_ITS | Continuity of Care Document ---
Author Organization [facility] ter Address [address] [place] [id number]- Care Team Providers Care Mental Health Aide Name Role Phone Not on Staff, PCP Primary Care Physician Unavail able Encounter [facility] [place] Date(s): 07/07/21 - 07/08/[address] [address]- Encounter Diagnosis Fall(Final) - 07/07/21 Discharge Disposition: A-D/C Home Attending Physician: Alexis Palma MD Admitting Physician: Alexis Palma MD Referring Physician: Not on Staff, Referring MD Allergies, Adverse Reactions, Alerts Substance Reaction Severity Status gold containing compounds Rash Ac tive Lactose stomach cramps/diarrhea Acti ve Medications Albuterol = 90 mcg, Inhalation, 3 times a day, PRN Wheezing/Shortness of Breath, 0 Refills Start Date: 12/13/06 Status: Ordered Denavir 1% topical cream 1 applicator, Topically, Every 2 hours, PRN Other, cold sore, 0 Refills, Maintenance Start Date: 04/24/13 Status: Ordered Midodrine 2.5, mg, By Mouth, 2 times a day, 0, 0, 12/13/06 2:35:07, Print RANJIT Number, [id number], Constant Indicator Start Date: 12/13/06 Status: Ordered Omeprazole = 20 mg, By Mouth, 2 times a day, 0 Refills Start Date: 12/13/06 Status: Ordered OxyContin 10 mg oral tablet, extended release 1 tablet = 10 mg, By Mouth, Every 12 hours, 0 Refills, Maintenance Start Date: 04/24/13 Status: Ordered Percocet-5 Tablet 1, tablet, By Mouth, Every 6 hours, 0, 0, 12/13/06 2:32:42, Print RANJIT Number, [id number], Constant Indicator Start Date: 12/13/06 Status: Ordered Prempro 0.625 mg-2.5 mg oral tablet 1 tablet, By Mouth, Daily, # 30 tablet, 0 Refills, Maintenance, Tablet Start Date: 04/24/13 Status: Ordered Soma Tablet 350 mg, By Mouth, 2 times a day, Refills 0, Tot. Refills 0, 12/13/06 2:33:16 Start Date: 12/13/06 Status: Ordered temazepam 15 mg oral capsule 1 capsule = 15 mg, By Mouth, Daily at bedtime, PRN for sleep, 0 Refills, Maintenance, Capsule Start Date: 04/24/13 Status: Ordered topiramate 100 mg oral tablet 1 tablet = 100 mg, By Mouth, Daily at bedtime, # 30 tablet, 0 Refills, Maintenance, Tablet Start Date: 04/24/13 Status: Ordered triamcinolone 0.1% topical cream 1 applicator, Topically, 2 times a day, 0 Refills, Maintenance Start Date: 04/24/13 Status: Ordered Truvada 200 mg-300 mg oral tablet 1 tablet, By Mouth, Daily, # 5 tablet, 0 Refills, Maintenance, 05/01/21 16:13:00 EDT, Tablet, Partial fill upon patient request if the prescription is for a schedule II opioid drug. Start Date: 05/01/21 Stop Date: 05/06/21 Status: Ordered Zofran 4 mg oral tablet 1 tablet = 4 mg, By Mouth, Every 8 hours, # 10 tablet, 0 Refills, Maintenance, 05/03/21 11:15:00 EDT, Tablet, Partial fill upon patient request if the prescription is for a schedule II opioid drug. Start Date: 05/03/21 Status: Ordered Results Radiology Reports * Exam Date Time Procedure Performing Provider Status 07/07/21 9:45 AM Shoulder Min 2 Views Left Jai , D reba; Auth (Verified) Notes: (Shoulder Min 2 Views Left) Reason For Exam: with Pain;Trauma RESULT: Shoulder Min 2 Views Left Shoulder Min 2 Views Left, 3 views Reason: Trauma; with Pain; Clinical Question(s): Fracture COMPARISON: None. FINDINGS: No fracture or dislocation. Mild glenohumeral degenerative changes. Mild acromioclavicular degenerative changes. Mildly congested vascularity within the visualized left lung. IMPRESSION: 1. Mild glenohumeral degenerative change. No fracture or dislocation. 2. Mild pulmonary vascular congestion within the left lung without jacky edema. WSN: [id number] Ordering Physician: León Chandra Dictated By: Julio César Melendez MD Dictated Date/Time: 07/07/21 10:01 a Reviewed By: Julio César Melendez MD Signed By: Julio César Melendez MD Signed Date/Time: 07/07/21 10:01 am Transcribed By: LAVELLE Transcribed Date/Time: 07/07/21 9:58 am * Exam Date Time Procedure Performing Provider Status 07/07/21 9:30 AM Pelvis 1 or 2 Views Rybinski , Chana line; Auth (Verified) Notes: (Pelvis 1 or 2 Views) Reason For Exam: with Pain;Trauma RESULT: Pelvis 1 or 2 Views Pelvis 1 or 2 Views Reason: Trauma; with Pain; Clinical Question(s): Fracture COMPARISON: None. FINDINGS: There is no fracture or dislocation. Normal hips and sacroiliac joints. Posterior spinal fusion hardware is partially imaged, as are numerous surgical clips projecting over the lower lumbar spine and sacrum. IMPRESSION: No fracture. WSN: [id number] Ordering Physician: León Chandra Dictated By: Julio César Melendez MD Dictated Date/Time: 07/07/21 9:47 am Reviewed By: Julio César Melendez MD Signed By: Julio César Melendez MD Signed Date/Time: 07/07/21 9:47 am Transcribed By: LAVELLE Transcribed Date/Time: 07/07/21 9:44 am * Exam Date Time Procedure Performing Provider Status 07/07/21 9:30 AM Chest Portable Franciscoi , Christine; Auth (Verified) Notes: (Chest Portable) Reason For Exam: Pain;Other: RESULT: Chest Portable Chest Portable Reason: Other:; Pain; Clinical Question(s): Other:; Fracture, pneumothorax, pulmonary contusion COMPARISON: None. FINDINGS: LINES AND TUBES: None. LUNGS AND PLEURA: Interstitial prominence. No consolidation. No pleural effusion. The lung apices are admitted from the study but no definite pneumothorax. HEART, MEDIASTINUM AND NATALEE: Atherosclerosis of the thoracic aorta. Prominence of the superior mediastinum, likely due to portable technique. BONES AND SOFT TISSUES: No acute abnormality. IMPRESSION: No definite acute abnormality. WSN: [id number] Ordering Physician: León Chandra Dictated By: Jeff Mosley MD Dictated Date/Time: 07/07/21 9:45 am Reviewed By: Jeff Mosley MD Signed By: Jeff Mosley MD Signed Date/Time: 07/07/21 9:45 am Transcribed By: LAVELLE Transcribed Date/Time: 07/07/21 9:42 am Vital Signs Most recent to oldest [Reference Range]: 1 2 3 Oxygen Saturation [94-100 %] 99 % (07/08/21 12:51 AM) 98 % (07/07/21 11:18 PM) 98 % (07/07/21 7:08 PM) Pulse Rate [55-90 bpm] 90 bpm (07/08/21 12:51 AM) 96 bpm *H* (07/07/21 11:18 PM) 98 bpm *H* (07/07/21 7:08 PM) Blood Pressure [90-138/55-84 mm Hg] 125/79mm Hg (07/08/21 12:51 AM) 129/82mm Hg (07/07/21 11:18 PM) 123/82mm Hg (07/07/21 7:08 PM) Respiratory Rate [16-30 br/min] 18 br/min (07/08/21 12:51 AM) 20 br/min (07/07/21 11:18 PM) 18 br/min (07/07/21 7:08 PM) Temperature [96.8-100.4 DegF] 97.6 DegF (07/07/21 11:18 PM) 97.8 DegF (07/07/21 7:08 PM) 98.1 DegF (07/07/21 4:18 PM) Mode of Delivery (Oxygen) Room air (07/08/21 12:51 AM) Room air (07/07/21 11:18 PM) Room air (07/07/21 7:08 PM) Blood pressure sites Arm, left (07/08/21 12:51 AM) Arm, left (07/07/21 11:18 PM) Arm, left (07/07/21 7:08 PM) Temperature Route Oral (07/07/21 11:18 PM) Oral (07/07/21 7:08 PM) Oral (07/07/21 4:18 PM)
--- OUTSIDE RECORDS SUMMARY | 2023-12-15 15:40 | XMS_ITS | Continuity of Care Document ---
Author Organization [facility] Address [address] [facility], [address] Floor, [address] [place] [address]- Care Team Providers Care Thread Checker Name Role Phone Miguel Huertas III, MD Primary Care Physician [phone] [id number]): [facility] - 09[facility]07/23 [facility] [address], [address] Floor, [address] [place] [id number] Attending Physician: Kingsley Russ MD Admitting Physician: Kingsley Russ MD Referring Physician: Miguel Huertas III, MD Allergies, Adverse Reactions, Alerts Substance Reaction [...] 0, 0, 12/13/06 2:35:07, Print RANJIT Number, [id number], Constant Indicator Start Date: 12/13/06 Status: Ordered [...] opioid drug. Start Date: 05/03/21 Status: Ordered Patient Care team information Care Team Personnel Name: Miguel Huertas III, MD Position: Reference Physician Member Role: PCP Address: Address: [address] [place] [address]- Care Team Related Persons Name: LISA JONAS Address: home [address] [place] [address] Name: CLARISSA FORTUNE Address: home [address] [place] [address] Name: LYRIC KOWALSKI Address: home [id number] [place] [address]
--- OUTSIDE RECORDS SUMMARY | 2023-12-15 15:41 | XMS_ITS | Continuity of Care Document ---
Author Organization [facility] ter Address [address] [place] [address]- Care Team Providers Care Carton Filling Machine Operator Name Role Phone Not on Staff, PCP Primary Care Physician Unavail able Encounter [facility] [place] Date(s): 05/01/21 - 05/02/[address] [address]- Discharge Disposition: A-D/C Home Attending Physician: Carlito Gifford MD Admitting Physician: Carlito Gifford MD Referring Physician: Not on Staff, Referring [...] Refills, Maintenance Start Date: 04/24/13 Status: Ordered dolutegravir 50 mg oral tablet 1 tablet = 50 mg, By Mouth, Daily, for 5 days, # 5 tablet, 0 Refills, Acute 05/06/21 16:12:00 EDT, 05/01/21 16:12:00 EDT, Tablet, Partial fill upon patient request if the prescription is for a schedule II opioid drug. Start Date: 05/01/21 Stop Date: 05/06/21 Status: Ordered doxycycline hyclate 100 mg oral capsule 1 capsule = 100 mg, By Mouth, 2 times a day, for 7 days, # 14 capsule, 0 Refills, Acute 05/08/21 16:13:00 EDT, 05/01/21 16:13:00 EDT, Capsule, Partial fill upon patient request if the prescription isfor a schedule II opioid drug. Start Date: 05/01/21 Stop Date: 05/08/21 Status: Ordered Midodrine 2.5, mg, By Mouth, 2 times a day, 0, 0, 12/13/06 2:35:07, Print RANJIT Number, [id number], Constant Indicator Start Date: 12/13/06 Status: Ordered [...] Date: 05/01/21 Stop Date: 05/06/21 Status: Ordered Vital Signs Most recent to oldest [Reference Range]: 1 2 3 Oxygen Saturation [94-100 %] 99 % (05/02/21 6:45 AM) 99 % (05/01/21 10:07 PM) 100 % (05/01/21:03 PM) Pulse Rate [55-90 bpm] 90 bpm (05/02/21 6:45 AM) 87 bpm (05/01/21 10:07 PM) 98 bpm *H* (05/01/21 5:03 PM) Blood Pressure [90-138/55-84 mm Hg] 120/74mm Hg (05/02/21 6:45 AM) 120/74mm Hg (05/01/21 10:07 PM) 130/80mm Hg (05/01/21:03 PM) Respiratory Rate [16-30 br/min] 18 br/min (05/02/21 6:45 AM) 17 br/min (05/01/21 10:07 PM) 16 br/min (05/01/21 5:03 PM) Temperature [96.8-100.4 DegF] 97.2 DegF (05/02/21 6:45 AM) 98.2 DegF (05/01/21 10:07 PM) 97.8 DegF (05/01/21:03 PM) Mode of Delivery (Oxygen) Room air (05/02/21 6:45 AM) Room air (05/01/21 10:07 PM) Room air (05/01/21:03 PM) Blood pressure sites Arm, right (05/01/21 10:07 PM) Arm, right (05/01/21:03 PM) Temperature Route Oral (05/02/21 6:45 AM) Oral (05/01/21 10:07 PM) Oral (05/01/21 5:03 PM)
--- OUTSIDE RECORDS SUMMARY | 2023-12-15 15:41 | XMS_ITS | Continuity of Care Document ---
Author Organization [facility] Address [address] [facility], [address] Floor, [address] [place] [address]- Care Team Providers Care Global Account Executive Name Role Phone Aleksandar OSORIO MD, Miguel French Primary Care Physician Encounter [facility] [place] Date(s): 04/10/23 - 05/10/23 [facility] [address], [address], [address] [place] [id number] Allergies, Adverse Reactions, Alerts Substance Reaction Severity [...] 0, 0, 12/13/06 2:35:07, Print RANJIT Number, [id number], Constant Indicator Start Date: 12/13/06 Status: Ordered [...] Care team information Care Team Personnel Name: Aleksandar OSORIO MD, Miguel French Position: Reference Physician Member Role: PCP Address: Address: [address] [place] [address]- Care Team Related Persons Name: SUMILISA POOLE Address: home [address] [place] [address] Name: CLARISSA FORTUNE Address: home [address] [place] [address] Name: LYRIC KOWALSKI Address: home [id number] [place] [address]
[2023-12-15 15:55] VITALS: BP 124/78; PULSE 69; TEMP 36.6; O2SAT 100; BMI 22.0
--- NOTE | 2023-12-15 15:55 | AM.OFFWIN_ITS ---
Intake Vital Signs 12/15/23 15:55 Height 4 ft 10 in Weight 105 lb 2 oz BMI 22.0 BP 124/78 Blood Pressure Location Lt brachial Position Sitting Pulse 69 Pulse Source Pulse Oximeter Temp 97.9 F Temp Source Oral Pulse Oximetry (%) 100 Oxygen Delivery Method Room Air Intake Visit Reasons: sore throat Intake Note: Pt is here today for sore throat also c/o of Rt ear pain Patient Tobacco Use Status: Former Tobacco user Quit Date: 14 YEARS AGO Allergies lactose [LACTOSE] Allergy (Mild, Verified 12/15/23 15:55) STOMACH UPSET Do you need a note to return to daycare/school/sports/work: No HPI HPI Comments History of Present Illness Details The patient presents to urgent care for evaluation of sore throat x5 days. She states that she saw a white patch on her right tonsil yesterday but it went away. The redness seems to be improving as well patient is unsure what is going on. She also complains of pain radiating to her right ear. No fever chills nausea vomiting chest pain or shortness of breath. [facility] Medical History Acetaminophen overdose Anxiety Chronic pain Depression Low blood pressure Suicide attempt Suicide attempt by drug overdose Surgical History H/O knee surgery Previous back surgery Social History Household Members: Spouse Housing: House Do you presently have visiting nurse or other home services: No Alcohol intake: current Alcohol intake frequency: holidays/special occasions on ly Patient Tobacco Use Status: Former Tobacco user Quit Date: 14 YEARS AGO Substance Use Type: Painkillers service: No Current occupational status: disabled Sexual orientation: Don't Know Physical Exam Vital Signs: Last Vital Signs Temp 97.9 F 12/15/23 15:55 Pulse 69 12/15/23 15:55 BP 124/78 12/15/23 15:55 Pulse Ox 100 12/15/23 15:55 Oxygen Delivery Method Room Air 12/15/23 15:55 BMI result Body Mass Index 22.0 Const General: healthy appearing and no acute distress HEENT Head: Yes normal to inspection Ears: external ears normal and TM's normal bilaterally Mouth: Normal oral and palatal mucosa present Throat: Yes posterior oropharynx normal Chest Chest palpation & inspection: normal inspection of the chest Resp Effort & Inspection: normal respiratory effort and able to speak in complete sentences Results AMB Rapid Strep AMB Rapid Strep Negative Last Edit by Jadon Sun MA on 12/15/23 16:15 Assessment & Plan Assessment & Plan (1) Viral pharyngitis: Code(s): J02.9 - Acute pharyngitis, unspecified Plan Symptoms consistent with viral pharyngitis. Rapid strep test negative. Patient advised to use ibuprofen and Tylenol. Coding Level of Care Code Est Pt Level 3 (38868) Diagnoses Viral pharyngitis J02.9
== END 2023-12-15 16:36 | disposition home or self-care (01) ==
PROVIDERS: PCP Internal Medicine; Visit Provider Emergency Medicine
DX: J02.9 Acute pharyngitis, unspecified (principal)
CPT/HCPCS: 87880; 99213

== ENCOUNTER 2025-02-08 17:11 | Inpatient (IN) | payer OTHER, SELFPAY ==
--- NOTE | 2025-02-08 | ECG_ITS ---
Test Reason : low K Blood Pressure : */* mmHG Vent. Rate : 75 BPM Atrial Rate : 75 BPM P-R Int : 138 ms QRS Dur : 84 ms QT Int : 410 ms P-R-T Axes : 53 50 71 degrees QTcB Int : 457 ms Normal sinus rhythm ST & T wave abnormality, consider inferior ischemia ST & T wave abnormality, consider anterior ischemia Abnormal ECG When compared with ECG of 11-Apr-2021 20:06, T wave inversion now evident in Inferior leads Nonspecific T wave abnormality, worse in Lateral leads Referred By: Generic ED Physician Electronically Signed By: Hadley Azar
[2025-02-08 17:35] VITALS: BP 117/78; PULSE 97; RESP 18; TEMP 37.2; O2SAT 98; BMI 20.4
--- OUTSIDE RECORDS SUMMARY | 2025-02-08 18:04 | XMS_ITS | Encounter Summary ---
Author Organization [facility] Address [address] [place] [address] Care Team Providers Care Receiver/Laborer Name Role Phone Miguel Huertas MD Primary Care Provider [phone] Encounter Details Date Type Department Care Team (Late st Contact Info) Description 02/08/2025 Telephone Adult Medicine [address] [phone] Shanthi Wright, LYUDMILA Social History Tobacco Use Types Packs/Day Years Used Date Smoking Tobacco: Former Cigarettes 1 27.2 0 02/20/1980 - 04/22/2007 Smokeless Tobacco: Never Alcohol Use Standard Drinks/Week Comments Yes 0 (1 standard drink = 0.6 oz pur e alcohol) Comments Unknown Sex and Gender Information Value Date Recorded Sex Assigned at Female 09/10/2022 3:09 PM EST Legal Sex Female 7:09 AM EST Gender Identity Female 09/10/2022 3:09 PM EST Sexual Orientation Straight 09/10/2022 3: 09 PM EST documented as of this encounter Progress Notes * Shanthi Wright RN - 02/08/2025 4:16 PM EDT Called pt and advised her per Dr. Huertas; No pt cannot go to the urgent care , pt appears to be having symptomatic hypokalemia which can cause fatal arrhythmia, she needs to go directly to the ER Pt is in agreement with this plan and states she will go to [facility] ER. * Miguel Huertas MD - 02/08/2025 4:06 PM EDT No pt cannot go to the urgent care , pt appears to be having symptomatic hypokalemia which can cause fatal arrhythmia, she needs to go directly to the ER * Shanthi Wright RN - 02/08/2025 3:35 PM EDT Called and spoke to pt. She was informed per Dr. Huertas; her potassium has decreased further I will send kcl 20 mg bid x 7 day please have patient return to the lab at that time to repeat this test. Please assess for signs for hypokalemia and please confirm patient has stopped her HCTZ. She states she is experiencing dizziness, numbness and tingling to her hands and increased thirst. She was instructed to to to the ER as she is symptomatic. Pt would like to know if she can go to an [facility] instead. Please review and advise. Call disconnected before asking about HCTZ. * Tamy Cedillo - 02/08/2025 3:25 PM EDT Patient calling back [phone] * Shanthi Wright RN - 02/08/2025 12:17 PM EDT I left pt a message to call the office at on her home and mobile numbers. This is thesecond attempt to reach the pt. documented in this encounter Plan of Treatment Upcoming Encounters Date Type Department Care Team (Late st Contact Info) Description 04/25/2025 2:30 PM EDT Office Visit [address] [phone] [facility] Aburto [facility] [address] [place], [place] [phone] documented as of this encounter Visit Diagnoses Not on filedocumented in this encounter Care Teams Receiver/Laborer Relationship Specialty Start Date End Date Miguel Huertas MD [address] [place] [phone] PCP - General Internal Medicine 08/20/20 documented as of this encounter
[2025-02-08 18:12] LABS: Basophils Absolute Auto 0.1 X10*3/uL (0.0-0.2); Basophils Percent Auto 0.7 % (0-2); Eosinophils Absolute Auto 0.1 X10*3/uL (0.0-0.4); Eosinophils Percent Auto 0.8 % (0-4); Hematocrit 35.3 % (37.0-47.0); Hemoglobin 12.8 g/dl (12.0-16.0); Imm Gran Abs Auto 0.01 X10*3/uL (0.00-0.03); Imm Gran Pct Auto 0.1 % (0.0-0.4); Lymphocytes Absolute Auto 2.7 X10*3/uL (1.2-4.9); Lymphocytes Percent Auto 37.1 % (20-40); MANUAL DIFF FLAG NO; Mean Corpuscular HGB Conc 36.3 g/dl (31.0-35.0); Mean Corpuscular Hemoglobin 30.6 pg (27.0-33.0); Mean Corpuscular Volume 84.4 fL (80.0-98.0); Mean Platelet Volume 10.1 fL (9.4-12.3); Monocytes Absolute Auto 0.7 X10*3/uL (0.1-1.2); Monocytes Percent Auto 9.8 % (2-11); Neutrophils Absolute Auto 3.7 x10*3/uL (2.0-8.3); Neutrophils Percent Auto 51.5 % (45-73); Platelet Count 339 X10*3/uL (160-400); Red Blood Count 4.18 X10*6/uL (4.20-5.50); Red Cell Distribution Width 14.5 % (11.0-16.0); White Blood Count 7.3 X10*3/uL (4.8-10.8)
[2025-02-08 18:32] LABS: Alanine Aminotransferase 18 U/L (0-31); Albumin Level 4.4 g/dL (3.5-5.0); Alkaline Phosphatase 96 U/L (39-117); Anion Gap 13 (12-20); Aspartate Amino Transferase 21 U/L (5-31); Bilirubin Total 0.2 mg/dL (0.0-1.0); Blood Urea Nitrogen 18 mg/dL (9-16); Calcium 9.3 mg/dL (8.4-10.2); Carbon Dioxide 27 mmol/L (22-29); Chloride 92 mmol/L (96-108); Creatinine Clr Calc Pharmacy 52.3; Estimated Glomerular Filt Rate > 60; Glucose Random 83 mg/dL (60-115); Magnesium 2.1 mg/dL (1.6-2.6); Potassium 2.3 mmol/L (3.3-5.1); Sodium 130 mmol/L (135-145); Total Protein 7.1 g/dL (6.5-8.0)
[2025-02-08 20:00] VITALS: BP 128/78; PULSE 70; RESP 16; TEMP 36.8; O2SAT 99
[2025-02-08 20:01] VITALS: BP 111/75; PULSE 73; RESP 14; O2SAT 99
--- NOTE | 2025-02-08 20:37 | ED.RECABL ---
HPI - Recheck/Abnormal Lab/Rx General Chief Complaint: Recheck/Abnormal Lab/Rx Stated Complaint: Dr Huertas sent her for low potassium Time Seen by Provider: 02/08/25 20:14 Source: patient and other (Significant other) Mode of arrival: ambulatory Limitations: no limitations History of Present Illness ED Provider: Dr. Oleg Andrea HPI narrative: 64-year-old female with a past medical history of prior suicide attempt/Tylenol overdos, depression, anxiety, chronic pain on chronic opioids, low blood pressure, chronic constipation on bisacodyl who presents emergency department for evaluation of a low potassium. Patient states that she was seen by your PCP proximally 1 week prior and had a low potassium of 3.0. She was placed on potassium chloride 20 mEq daily and had a repeat potassium done 2 days prior and was told that the potassium was 2.4 and that she should go to the emergency department for evaluation. Patient states that she has chronic pain and takes OxyContin 20 mg t.i.d. and oxycodone 7.5 mg TID. She states that her opiate use causes chronic constipation and has to take bisacodyl 4 pills daily. She states this causes her to have 3-4 loose stools per day. Patient states she has been feeling weak especially in your upper extremities. She complains of paresthesias in her extremities and increased thirst. I did review her medications and the patient takes pantoprazole 40 mg once a day, Topamax 400 mg daily, midodrine 2.5 mg daily, cyclobenzaprine 10 mg prn, desipramine 100mg,Venlafaxine, oxycodone 7.5 mg 3 times a day and OxyContin 20 mg 3 times a day. She does not take care risperidone or hydrochlorothiazide. Related Data Home Medications ?Medication ?Instructions ?Recorded ?Confirmed carisoprodol 350 mg tablet 1 tab PO TID PRN Pain, Moderate 04/12/21 03/11/22 desipramine 100 mg tablet 2 tab PO BEDTIME 04/12/21 03/11/22 hydroxyzine HCl 25 mg tablet 1 tab PO BEDTIME 04/12/21 03/11/22 ibuprofen 800 mg tablet 1 tab PO TID PRN Muscle Spasm 04/12/21 03/11/22 midodrine 2.5 mg tablet 1 tab PO BID 04/12/21 03/11/22 pantoprazole 40 mg tablet,delayed 1 tab PO DAILY 04/12/21 03/11/22 release topiramate 100 mg tablet 1 tab PO QID 04/12/21 03/11/22 conj estrogen-medroxyprogesterone 1 tab PO DAILY 03/11/22 03/11/22 0.625 mg-2.5 mg tablet (Prempro) oxycodone 20 mg tablet,crush 20 mg PO Q12H 03/11/22 03/11/22 resistant,extended release 12 hr venlafaxine 150 mg 150 mg PO DAILY 03/11/22 03/11/22 capsule,extended release 24 hr Allergies Allergy/AdvReac Type Severity Reaction Status Date / Time lactose (LACTOSE) Allergy Mild STOMACH Verified 02/08/25 17:36 UPSET Review of Systems Review of Systems: Yes all other systems are reviewed and are negative [facility] Past Medical History [facility] Narrative: Social history: The patient does not smoke cigarettes. She is a former smoker and smoked for 30 years but stopped in 2006. Patient is a former drinker but stopped drinking 3 years prior. She denies drug use. Medical History Acetaminophen overdose Anxiety Chronic pain Depression Low blood pressure Suicide attempt Suicide attempt by drug overdose Surgical History H/O knee surgery Previous back surgery Social History Social History Household Members: Spouse Housing: House Do you presently have visiting nurse or other home services: No Alcohol intake: current Alcohol intake frequency: holidays/special occasions only Patient Tobacco Use Status: Former Tobacco user Smoked in Last 30 Days: No Substance Use Type: Painkillers Advance Directives: No Advance Directives Information Provided: Yes Patient : No service: No Current occupational status: disabled Sexual orientation: Don't Know Physical Exam Vital Signs: Vital Signs: Last Vital Signs Temp 98.3 F 02/08/25 20:00 Pulse 72 02/08/25 21:25 Resp 14 02/08/25 21:25 BP 115/76 02/08/25 21:25 Pulse Ox 100 02/08/25 21:25 O2 Del Method Room Air 02/08/25 21:25 BMI result Body Mass Index 20.4 Vital signs were normal. Exam: General: Awake, alert in no distress, weight 45.9 kg with a low BMI of 20.4 kg per m2 Head: Normocephalic, atraumatic EENT: PERRL, Lids normal, sclera normal, conjunctiva normal, nose normal , ears normal, throat without erythema or exudates Neck: Supple, no adenopathy Lung: breath sounds symmetric, no wheezing, rales or rhonchi Chest: symmetric movement, nontender Heart: regular rate and rhythm, normal S1, S2 no murmurs or rubs Abdomen: soft, non-tender, nondistended, normal bowel sounds Back: no vertebral tenderness, no CVAT Extremities: no deformities, moves all extremities symmetrically Neuro: Awake, alert, oriented, normal speech, cranial nerves intact, moves all extremities symmetrically Psych: Pleasant, cooperative Medications Administered Generic Name Dose Route Start Last Admin Trade Name Freq PRN Reason Stop Dose Admin Potassium Chloride 10 meq in 100 mls @ 100 mls/hr 02/08/25 20:45 02/08/25 21:26 Potassium Chloride/H20 IV 02/09/25 00:44 100 mls/hr Q1H AWA Administration Discontinued Medications Generic Name Dose Route Start Last Admin Trade Name Freq PRN Reason Stop Dose Admin Potassium Chloride 40 meq 02/08/25 20:40 02/08/25 21:07 Potassium Chloride Packet 20 Meq Packet PO 02/08/25 20:41 40 meq ONCE ONE Administration Medical Decision Making Medical Decision Making [facility] Narrative: 64-year-old female with a past medical history of prior suicide attempt/Tylenol overdos, depression, anxiety, chronic pain on chronic opioids, low blood pressure, chronic constipation on bisacodyl who presents emergency department for evaluation of a low potassium. Patient states that she was seen by your PCP proximally 1 week prior and had a low potassium of 3.0. She was placed on potassium chloride 20 mEq daily and had a repeat potassium done 2 days prior and was told that the potassium was 2.4 and that she should go to the emergency department for evaluation. Patient states that she has chronic pain and takes OxyContin 20 mg t.i.d. and oxycodone 7.5 mg TID. She states that her opiate use causes chronic constipation and has to take bisacodyl 4 pills daily. She states this causes her to have 3-4 loose stools per day. Patient states she has been feeling weak especially in your upper extremities. She complains of paresthesias in her extremities and increased thirst. Vital signs were normal. Physical examination was unremarkable. Differential diagnosis: ?Includes but is not limited to medication induced hypokalemia, laxative induced hypokalemia, anemia, electrolyte abnormalities, Course: 21:40 Normocytic anemia with an H&H of 12 and 35. Low sodium 130. Low potassium 2.3. Normal BUN and creatinine of 18 and 0.76. Magnesium normal 2.1. At this time, I believe that the patient's low potassium may be laxative induced. The patient has been taking potassium chloride supplements for the last week and despite this her potassium still remains low. I ordered potassium chloride 10 mEq IV over 1 hour x4 doses and potassium chloride 40 mEq orally. The patient has failed outpatient supplementation of her potassium and given her low potassium I believe the patient should be admitted so that we can monitor her potassium and for further workup of her hypokalemia. 21:47 I did discuss the patient with Dr. Quintana and he did accept the patient onto the hospitalist service for further treatment. Admission/Observation Consideration of admission/observation: Escalation of care including admission/observation considered (Yes) Consult Healthcare Provider Management of the patient was discussed with: Hospitalist (Dr. Quintana) Lab Data MDM Lab Attestation statement: I reviewed the patient's lab results. 02/08/25 17:55 02/08/25 17:55 Labs: Lab Results 02/08/25 02/08/25 Range/Units 17:55 21:09 WBC 7.3 (4.8-10.8) X10*3/uL RBC 4.18 L (4.20-5.50) X10*6/uL Hgb 12.8 (12.0-16.0) g/dl Hct 35.3 L (37.0-47.0) % MCV 84.4 (80.0-98.0) fL MCH 30.6 (27.0-33.0) pg MCHC 36.3 H (31.0-35.0) g/dl RDW 14.5 (11.0-16.0) % Plt Count 339 (160-400) X10*3/uL MPV 10.1 (9.4-12.3) fL Immature Gran % (Auto) 0.1 (0.0-0.4) % Neut % (Auto) 51.5 (45-73) % Lymph % (Auto) 37.1 (20-40) % [place] % (Auto) 9.8 (2-11) % Eos % (Auto) 0.8 (0-4) % Baso % (Auto) 0.7 (0-2) % Lymph # (Auto) 2.7 (1.2-4.9) X10*3/uL [place] # (Auto) 0.7 (0.1-1.2) X10*3/uL Eos # (Auto) 0.1 (0.0-0.4) X10*3/uL Baso # (Auto) 0.1 (0.0-0.2) X10*3/uL Abs Immat Gran (auto) 0.01 (0.00-0.03) X10*3/uL Absolute Neuts (auto) 3.7 (2.0-8.3) x10*3/uL Absolute Nucleated RBC 0.000 (0.0-0.012) X10*3/uL Nucleated RBC % (auto) 0.0 (0.0-0.2) /100WBC Sodium 130 L (135-145) mmol/L Potassium 2.3 L* (3.3-5.1) mmol/L Chloride 92 L (96-108) mmol/L Carbon Dioxide 27 (22-29) mmol/L Anion Gap 13 (12-20) BUN 18 H (9-16) mg/dL Creatinine 0.76 (0.5-1.4) mg/dL Estim Creat Clear Calc 52.3 Estimated GFR > 60 Random Glucose 83 (60-115) mg/dL Calcium 9.3 (8.4-10.2) mg/dL Magnesium 2.1 (1.6-2.6) mg/dL Total Bilirubin 0.2 (0.0-1.0) mg/dL AST 21 (5-31) U/L ALT 18 (0-31) U/L Alkaline Phosphatase 96 (39-117) U/L Total Protein 7.1 (6.5-8.0) g/dL Albumin 4.4 (3.5-5.0) g/dL Urine Color Yellow Urine Appearance Clear Urine pH 7.5 (5.0-9.0) Ur Specific [place] 1.010 (1.005-1.025) Urine Protein Negative (Neg-Trace) mg/dL Urine Glucose (UA) Negative (Negative) mg/dL Urine Ketones Negative (Negative) mg/dL Urine Blood Negative (Negative) Urine Nitrite Negative (Negative) Ur Leukocyte Esterase Trace H (Negative) Urine RBC 0-2 (0-2) /HPF Urine WBC 0-5 (0-5) /HPF Ur Squamous Epith Cells 0-2 (0-2) /HPF Urine Bacteria None Seen (None Seen) Hyaline Casts 0-2 (0-2) /LPF Independent Interpretation I performed an independent interpretation of an: EKG Interpretation: My independent interpretation patient's 12 EKG done on 02/08/2025 at 18:00 hours is as follows: Normal sinus rhythm with a rate of 75, normal NC interval, QRS duration and QTC interval, no ST segment elevation, less than [address] segment depression in leads 2, 3 and AVF and in leads V3 through V6, nonspecific T-wave abnormalities. Compared to EKG dated 04/11/2021 at 20:06 hours, ST segment depressions were present in the previous EKG. Independent Historian Clinical information obtained from an independent historian. History obtained from or confirmed by: Other (Significant other) External Record Review External record reviewed: Inpatient record Chronic Conditions Patient?s care impacted by: Other (Chronic pain-opiate dependent, constipation) Critical Care Time Critical Care Time Critical Care Time: Yes Total Critical Care Time: 55 Attestation: Critical Care: The patient was critically ill with a high probability of imminent or life threatening deterioration. I spent greater than 30 minutes of discontinuous time evaluating the patient,delivering critical care at the bedside, discussing and evaluating pertinent data with consultants. Critical care time does not include time spent performing separately billable procedures or teaching. Total time spent performing critical care was 55 minutes. Discharge Plan Discharge Clinical Impression: Acute hypokalemia, Weakness Patient Disposition: Admitted As Inpatient Print Language: Uzbek
[2025-02-08] MEDS: Potassium Chloride Packet 20 MEQ PACKET 40 MEQ PO (21:07)
[2025-02-08 21:15] LABS: Appearance Urine Clear; Color Urine Yellow; Glucose Urine UA Negative (Negative); Leukocyte Esterase Urine Trace (Negative); Nitrite Urine Negative (Negative); PH 7.5 (5.0-9.0); UMIC TRIGGER UACC YES; Urine Blood Negative (Negative); Urine Ketones Negative (Negative); Urine Protein Negative (Neg-Trace)
[2025-02-08 21:24] LABS: Bacteria Urine None Seen (None Seen); Hyaline Casts Urine 0-2 /LPF (0-2); RBC Urine 0-2 /HPF (0-2); Squamous Epithelial Cell Urine 0-2 /HPF (0-2); WBC Urine 0-5 /HPF (0-5)
[2025-02-08 21:25] VITALS: BP 115/76; PULSE 72; RESP 14; O2SAT 100
[2025-02-08] MEDS: Potassium Chloride/H20 10 MEQ/100 ML PIGGYBACK 100 MEQ IV ×3 (21:26→22:57)
--- NOTE | 2025-02-08 21:54 | PM.IMHP ---
History of Present Illness Date of Service: 02/08/25 Attending physician on admission: Srinivasa Quintana Chief Complaint: Abnormal labs Patient is a 64-year-old female with a past medical history significant for history of SI attempt with Tylenol overdose, depression, anxiety, chronic pain syndrome on OxyContin and oxycodone, hypotension and chronic constipation, who presented to the ED due to abnormal labs. The patient reports that she has been seeing her PCP for low potassium and was started on a 20 mEq supplement daily late last week. Two days ago she had repeat labs which showed a lower potassium of 2.4. The patient reports that she does take Dulcolax 4 times daily for her chronic constipation which then causes diarrhea every few days. She also was on hydrochlorothiazide in the past but has not been taking this recently. She denies any recent vomiting. She is not have any chest pain, shortness of breath or palpitations. Review of Systems Constitutional: Constitutional: Denies body ache(s), Denies chills, Reports fatigue, Denies fever(s) and Denies headache(s) Eyes: Eyes: Denies change in vision and Denies loss of vision ENT: Denies headache(s), Denies nasal congestion, Denies nasal discharge and Denies sore throat Cardiovascular: Cardiovascular: Denies chest pain, Denies rapid heart rate, Denies leg edema, Denies lightheadedness and Denies dyspnea Respiratory: Respiratory: Denies chest congestion, Denies cough, Denies dyspnea and Denies wheezing Gastrointestinal: Gastrointestinal: Denies abdominal pain, Reports constipation, Reports diarrhea, Denies nausea and Denies vomiting Genitourinary: Genitourinary: Denies difficulty voiding, Denies dysuria and Denies urinary urgency Musculoskeletal: Musculoskeletal: Denies myalgias and Reports muscle weakness Integumentary/Breasts: Skin/Breast: Denies rash Neurologic: Denies confusion, Denies headache(s) and Denies loss of vision Psychiatric: Psychiatric: Denies confusion Endocrine: Endocrine: Reports fatigue Hematologic/Lymphatic: Hematologic/Lymphatic: Denies easy bleeding and Denies easy bruising Allergic/Immunologic: Allergic/Immunologic: Denies wheezing [facility] Medical History Acetaminophen overdose Anxiety Chronic pain Depression Low blood pressure Suicide attempt Suicide attempt by drug overdose Functional capacity: independent ambulation Surgical History H/O knee surgery Previous back surgery Social History Household Members: Spouse Housing: House Do you presently have visiting nurse or other home services: No Alcohol intake: current Alcohol intake frequency: holidays/special occasions only Patient Tobacco Use Status: Former Tobacco user Smoked in Last 30 Days: No Substance Use Type: Painkillers Advance Directives: No Advance Directives Information Provided: Yes Patient : No service: No Current occupational status: disabled Sexual orientation: Don't Know Narrative: no smoking, alcohol, or drug use Meds Allergies Allergy/AdvReac Type Severity Reaction Status Date / Time lactose (LACTOSE) Allergy Mild STOMACH Verified 02/08/25 17:36 UPSET Active Medications: Current Medications Acetaminophen (Acetaminophen 325 Mg Tablet) 975 mg PO Q6H PRN PRN Reason: Pain, Mild 1-3,fever,headache Calcium Carbonate (Calcium Carbonate 750 Mg Tab.Chew) 750 mg PO Q4H PRN PRN Reason: Heartburn Enoxaparin Sodium (Enoxaparin Sodium 40 Mg/0.4 Ml Syringe) 40 mg SUBCUT Q24H AWA Potassium Chloride (Potassium Chloride/H20) 10 meq in 100 mls @ 100 mls/hr IV Q1H AWA Stop: 02/09/25 00:44 Last Admin: 02/08/25 21:26 Dose: 100 mls/hr Magnesium Hydroxide (Milk Of Magnesia 30 Ml Oral.Susp) 30 ml PO DAILY PRN PRN Reason: Constipation Melatonin (Melatonin 3 Mg Tablet) 6 mg PO BEDTIME PRN PRN Reason: Insomnia Ondansetron HCl (Ondansetron Hcl 4 Mg/2 Ml Vial) 4 mg IVPUSH Q8H PRN PRN Reason: Nausea and Vomiting Oxycodone HCl (Oxycodone Hcl Immed Release 5 Mg Tablet) 5 mg PO Q6H PRN PRN Reason: Pain, Severe (Pain Scale 7-10) Sodium Chloride (0.9 % Sodium Chloride Flush 3 Ml Syringe) 3 ml IVFLUSH QSHIFT [facility] Home Medications ?Medication ?Instructions ?Recorded ?Confirmed ?Last Taken ?Type hydroxyzine HCl 25 mg tablet 25 mg PO DAILY 04/12/21 02/08/25 02/07/25 History ibuprofen 800 mg tablet 1 tab PO TID PRN Muscle Spasm 04/12/21 02/08/25 Unknown History midodrine 2.5 mg tablet 1 tab PO BID 04/12/21 02/08/25 02/07/25 History pantoprazole 40 mg tablet,delayed 1 tab PO DAILY@0630 04/12/21 02/08/25 02/07/25 History release topiramate 100 mg tablet 1 tab PO QID 04/12/21 02/08/25 02/07/25 History oxycodone 20 mg tablet,crush 20 mg PO Q8H 03/11/22 02/08/25 02/07/25 History resistant,extended release 12 hr venlafaxine 150 mg 150 mg PO DAILY 03/11/22 03/11/22 Unknown History capsule,extended release 24 hr cyclobenzaprine 10 mg tablet 10 mg PO TID PRN muscle spasms 02/08/25 02/08/25 Unknown History desipramine 100 mg tablet 100 mg PO BEDTIME 02/08/25 02/08/25 02/07/25 History duloxetine 60 mg capsule,delayed 60 mg PO BEDTIME 02/08/25 02/08/25 02/07/25 History release folic acid 1 mg tablet 1 mg PO DAILY 02/08/25 02/08/25 02/07/25 History galcanezumab-gnlm 120 mg/mL 120 mg subcut Q28D 02/08/25 02/08/25 Unknown History subcutaneous pen injector (Emgality Pen) hydroxyzine HCl 25 mg tablet 50 mg PO BEDTIME 02/08/25 02/08/25 02/07/25 History oxycodone-acetaminophen 7.5 mg-325 1 tab PO TID PRN Pain 02/08/25 02/08/25 02/07/25 History mg tablet Physical Exam Vital Signs and Narrative: Vital Signs: Last Vital Signs Temp 98.3 F 02/08/25 20:00 Pulse 72 02/08/25 21:25 Resp 14 02/08/25 21:25 BP 115/76 02/08/25 21:25 Pulse Ox 100 02/08/25 21:25 O2 Del Method Room Air 02/08/25 21:25 BMI result Body Mass Index 20.4 General: AOx3, no acute distress Resp: CTA bilaterally CVS: S1, S2, RRR GI: +BS, NT, no distention Skin: Warm, dry Neuro: Cranial nerves II-XII grossly intact bilaterally. Motor grossly intact bilaterally Extremities: No LEedema Psych: Appropriate affect Const: General: No confusion Orientation/consciousness: No confusion Neuro: General: No confusion Results Labs 02/08/25 17:55 02/08/25 17:55 Labs: Laboratory Results - last 24 hr 02/08/25 02/08/25 17:55 21:09 MCV 84.4 MCH 30.6 MCHC 36.3 H RDW 14.5 Plt Count 339 MPV 10.1 Immature Gran % (Auto) 0.1 Neut % (Auto) 51.5 Lymph % (Auto) 37.1 [place] % (Auto) 9.8 Eos % (Auto) 0.8 Baso % (Auto) 0.7 Lymph # (Auto) 2.7 [place] # (Auto) 0.7 Eos # (Auto) 0.1 Baso # (Auto) 0.1 Abs Immat Gran (auto) 0.01 Absolute Neuts (auto) 3.7 Absolute Nucleated RBC 0.000 Nucleated RBC % (auto) 0.0 Anion Gap 13 Estim Creat Clear Calc 52.3 Estimated GFR > 60 Random Glucose 83 Calcium 9.3 Magnesium 2.1 Total Bilirubin 0.2 AST 21 ALT 18 Alkaline Phosphatase 96 Total Protein 7.1 Albumin 4.4 Urine Color Yellow Urine Appearance Clear Urine pH 7.5 Ur Specific [place] 1.010 Urine Protein Negative Urine Glucose (UA) Negative Urine Ketones Negative Urine Blood Negative Urine Nitrite Negative Ur Leukocyte Esterase Trace H Urine RBC 0-2 Urine WBC 0-5 Ur Squamous Epith Cells 0-2 Urine Bacteria None Seen Hyaline Casts 0-2 Assessment and Plan (1) Acute hypokalemia: Status: Acute (2) Weakness: Status: Acute Plan Patient is a 64-year-old female with a past medical history significant for history of SI attempt with Tylenol overdose, depression, anxiety, chronic pain syndrome on OxyContin and oxycodone, hypotension and chronic constipation, who presented to the ED due to abnormal labs. Acute hypokalemia with associated weakness, ? Secondary to laxative use - potassium 2.3 - given 40 mEq p.o. and awaiting 40 mEq IV - mag normal - sodium low at 130, chloride 92 - UA negative - EKG with ST depressions, no change from previous - monitor on tele - follow BMP Anxiety/depression - continue home meds Chronic pain syndrome - continue OxyContin and oxycodone Hypotension - midodrine b.i.d. Chronic constipation secondary to chronic opioid use - MiraLax, milk of magnesia - f/u with GI outpt for better constipation management Med reconciliation pending Full code VTE prophylaxis: Lovenox Patient with acute hypokalemia with associated weakness likely secondary to laxative use, requiring admission for at least 2 midnight stay for potassium repletion and cardiac monitoring. Quality Stroke Does the patient have a stroke diagnosis?: No VTE Prior VTE?: No VTE Risk Level:: Medical - moderate - high VTE Device Contraindication: Treatment Not Indicated VTE Drug Contraindication: N/A - Med Ordered
[2025-02-08 22:00] VITALS: BP 124/80; PULSE 73; RESP 15; TEMP 36.9; O2SAT 100
--- NOTE | 2025-02-08 22:42 | PHA.MEDREC ---
Addendum entered by Alexei Morrison 02/09/25 09:27: [facility] confirmed venlafaxine is still active, last picked up 12/05/24 x90 DS. Spoke with patients (Sourav) over the phone, he confirmed she has it at home as well. Confirmed on med list. Original Note: Pharmacy Consult ? Medication Reconciliation Pharmacy has completed the medication reconciliation, spoke to patient at bedside who confirmed all meds. Pt did not remember when she last had her emgality inj but said it is due soon . Pt was also very unsure about venlafaxine 150mg, left unconfirmed.
[2025-02-08] MEDS: Enoxaparin Sodium 40 MG/0.4 ML SYRINGE SUBCUT (23:03)
[2025-02-09] MEDS: Potassium Chloride/H20 10 MEQ/100 ML PIGGYBACK 100 MEQ IV (00:26)
[2025-02-09 06:15] VITALS: BP 133/90; PULSE 71; RESP 15; O2SAT 99
[2025-02-09 06:44] LABS: Hematocrit 34.1 % (37.0-47.0); Hemoglobin 11.8 g/dl (12.0-16.0); Mean Corpuscular HGB Conc 34.6 g/dl (31.0-35.0); Mean Corpuscular Hemoglobin 29.7 pg (27.0-33.0); Mean Corpuscular Volume 85.9 fL (80.0-98.0); Mean Platelet Volume 10.4 fL (9.4-12.3); Platelet Count 341 X10*3/uL (160-400); Red Blood Count 3.97 X10*6/uL (4.20-5.50); Red Cell Distribution Width 14.5 % (11.0-16.0); White Blood Count 7.1 X10*3/uL (4.8-10.8)
[2025-02-09 06:54] LABS: Anion Gap 10 (12-20); Blood Urea Nitrogen 14 mg/dL (9-16); Calcium 8.6 mg/dL (8.4-10.2); Carbon Dioxide 24 mmol/L (22-29); Chloride 104 mmol/L (96-108); Estimated Glomerular Filt Rate > 60; Glucose Random 74 mg/dL (60-115); Magnesium 2.1 mg/dL (1.6-2.6); Potassium 2.9 mmol/L (3.3-5.1); Sodium 135 mmol/L (135-145)
--- NOTE | 2025-02-09 07:02 | PM.EVENT ---
Event Note Date of Service: 02/09/25 Event Note: K this morning was 2.9, ordered additional 40meq PO now. Time Spent With Patient Time: Total time managing care of this patient today ____ minutes.
[2025-02-09] MEDS: Potassium Chloride Packet 20 MEQ PACKET 40 MEQ PO ×2 (07:22→08:46)
[2025-02-09] MEDS: oxyCODONE HCl ER 10 MG TAB.ER.12H 20 MG PO ×2 (07:23→14:33)
[2025-02-09] MEDS: 0.9 % Sodium Chloride Flush 3 ML SYRINGE IVFLUSH ×2 (07:24→14:34)
--- NOTE | 2025-02-09 07:28 | PC.NURSE ---
Addendum entered by Yue Olivo RN 02/09/25 07:29: Patient is a 64-year-old female with a past medical history significant for history of SI attempt with Tylenol overdose, depression, anxiety, chronic pain syndrome on OxyContin and oxycodone, hypotension and chronic constipation, who presented to the ED due to abnormal labs. The patient reports that she has been seeing her PCP for low potassium and was started on a 20 mEq supplement daily late last week. Two days ago she had repeat labs which showed a lower potassium of 2.4. The patient reports that she does take Dulcolax 4 times daily for her chronic constipation which then causes diarrhea every few days. Patient alert and oriented. 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 Lungs clear bilat. Respirations even and non-labored. Abdomen soft, flat, non-tender with positive bowel sounds. Positive pedal pulses with no edema. Potassium remains low, provider notified and additional potassium supplement given. Original Note: Medical History Acetaminophen overdose Anxiety Chronic pain Depression Low blood pressure Suicide attempt Suicide attempt by drug overdose
[2025-02-09] MEDS: Topiramate 100 MG TABLET PO ×2 (08:12→12:51)
[2025-02-09] MEDS: Folic Acid 1 MG TABLET PO (08:12)
[2025-02-09] MEDS: hydrOXYzine HCL 25 MG TABLET PO (08:12)
--- NOTE | 2025-02-09 08:26 | P.PNIM_ITS ---
Subjective Subjective Date of Service: 02/09/25 Interval History: Seen in follow up for acute hypokalemia Interval history: Physical Exam 2 Vital Signs: Vital Signs: Last Vital Signs Temp 98.5 F 02/08/25 22:00 Pulse 71 02/09/25 06:15 Resp 15 02/09/25 06:15 BP 133/90 H 02/09/25 06:15 Pulse Ox 99 02/09/25 06:15 O2 Del Method Room Air 02/09/25 06:15 BMI result Body Mass Index 20.4 Objective Data Active Medications Acetaminophen (Acetaminophen 325 Mg Tablet) 975 mg PO Q6H PRN PRN Reason: Pain, Mild 1-3,fever,headache Calcium Carbonate (Calcium Carbonate 750 Mg Tab.Chew) 750 mg PO Q4H PRN PRN Reason: Heartburn Desipramine HCl (Desipramine Hcl 25 Mg Tablet) 100 mg PO BEDTIME AWA Duloxetine HCl (Duloxetine Hcl 60 Mg Capsule.Dr) 60 mg PO BEDTIME [facility] Enoxaparin Sodium (Enoxaparin Sodium 40 Mg/0.4 Ml Syringe) 40 mg SUBCUT Q24H [facility] Last Admin: 02/08/25 23:03 Dose: 40 mg Documented By: ELSA Folic Acid (Folic Acid 1 Mg Tablet) 1 mg PO DAILY [facility] Last Admin: 02/09/25 08:12 Dose: 1 mg Documented By: ALEX Hydroxyzine HCl (Hydroxyzine Hcl 50 Mg Tablet) 50 mg PO BEDTIME AWA Hydroxyzine HCl (Hydroxyzine Hcl 25 Mg Tablet) 25 mg PO DAILY [facility] Last Admin: 02/09/25 08:12 Dose: 25 mg Documented By: ALEX Magnesium Hydroxide (Milk Of Magnesia 30 Ml Oral.Susp) 30 ml PO DAILY PRN PRN Reason: Constipation Melatonin (Melatonin 3 Mg Tablet) 6 mg PO BEDTIME PRN PRN Reason: Insomnia Ondansetron HCl (Ondansetron Hcl 4 Mg/2 Ml Vial) 4 mg IVPUSH Q8H PRN PRN Reason: Nausea and Vomiting Oxycodone HCl (Oxycodone Hcl Immed Release 5 Mg Tablet) 5 mg PO Q6H PRN PRN Reason: Pain, Severe (Pain Scale 7-10) Oxycodone HCl (Oxycodone Hcl Er 10 Mg Tab.Er.12h) 20 mg PO Q8H [facility] Last Admin: 02/09/25 07:23 Dose: 20 mg Documented By: ALEX Pantoprazole Sodium (Pantoprazole Sodium 20 Mg Angelita.) 40 mg PO DAILY@629 [facility] Sodium Chloride (0.9 % Sodium Chloride Flush 3 Ml Syringe) 3 ml IVFLUSH QSHIFT [facility] Last Admin: 02/09/25 07:24 Dose: 3 ml Documented By: ALEX Topiramate (Topiramate 100 Mg Tablet) 100 mg PO QID [facility] Last Admin: 02/09/25 08:12 Dose: 100 mg Documented By: ALEX Labs 02/09/25 05:50 02/09/25 05:50 Labs: Laboratory Results - last 24 hr 02/08/25 02/08/25 02/09/25 17:55 21:09 05:50 MCV 84.4 85.9 MCH 30.6 29.7 MCHC 36.3 H 34.6 RDW 14.5 14.5 Plt Count 339 341 MPV 10.1 10.4 Immature Gran % (Auto) 0.1 Neut % (Auto) 51.5 Lymph % (Auto) 37.1 [place] % (Auto) 9.8 Eos % (Auto) 0.8 Baso % (Auto) 0.7 Lymph # (Auto) 2.7 [place] # (Auto) 0.7 Eos # (Auto) 0.1 Baso # (Auto) 0.1 Abs Immat Gran (auto) 0.01 Absolute Neuts (auto) 3.7 Absolute Nucleated RBC 0.000 0.000 Nucleated RBC % (auto) 0.0 0.0 Anion Gap 13 10 L Estim Creat Clear Calc 52.3 71.0 Estimated GFR > 60 > 60 Random Glucose 83 74 Calcium 9.3 8.6 D Magnesium 2.1 2.1 Total Bilirubin 0.2 AST 21 ALT 18 Alkaline Phosphatase 96 Total Protein 7.1 Albumin 4.4 Urine Color Yellow Urine Appearance Clear Urine pH 7.5 Ur Specific [place] 1.010 Urine Protein Negative Urine Glucose (UA) Negative Urine Ketones Negative Urine Blood Negative Urine Nitrite Negative Ur Leukocyte Esterase Trace H Urine RBC 0-2 Urine WBC 0-5 Ur Squamous Epith Cells 0-2 Urine Bacteria None Seen Hyaline Casts 0-2 Assessment and Plan Plan Patient is a 64-year-old female with a past medical history significant for history of SI attempt with Tylenol overdose, depression, anxiety, chronic pain syndrome on OxyContin and oxycodone, hypotension and chronic constipation, who presented to the ED due to abnormal labs. Acute hypokalemia with associated weakness, ? Secondary to laxative use - potassium 2.3 - given 40 mEq p.o. and awaiting 40 mEq IV - mag normal - sodium low at 130, chloride 92 - UA negative - EKG with ST depressions, no change from previous - monitor on tele - follow BMP Anxiety/depression - continue home meds Chronic pain syndrome - continue OxyContin and oxycodone Hypotension - midodrine b.i.d. Chronic constipation secondary to chronic opioid use - MiraLax, milk of magnesia - f/u with GI outpt for better constipation management Med reconciliation pending Full code VTE prophylaxis: Lovenox Patient with acute hypokalemia with associated weakness likely secondary to laxative use, requiring admission for at least 2 midnight stay for potassium repletion and cardiac monitoring. Quality Stroke Does the patient have a stroke diagnosis?: No VTE Prior VTE?: No VTE Risk Level:: Medical - moderate - high VTE Device Contraindication: Treatment Not Indicated VTE Drug Contraindication: N/A - Med Ordered
[2025-02-09 13:00] VITALS: BP 105/66; PULSE 75; RESP 15; TEMP 36.6; O2SAT 96
[2025-02-09 14:11] LABS: Potassium 4.6 mmol/L (3.3-5.1)
--- NOTE | 2025-02-09 14:27 | P.DS_ITS ---
DS: Providers Provider Date of Service: 02/09/25 Date of admission: 02/08/25 22:00 Date of discharge: 02/09/25 Primary care physician: Miguel Huertas III, MD Admitting clinician: Marina Sweeney Attending physician on admission: Srinivasa Quintana Attending physician on discharge: Michael [facility] [place] Discharging clinician: Aura Morrell DS: Diagnosis Discharge Diagnosis (1) Acute hypokalemia: Status: Acute (2) Weakness: Status: Acute DS: Summary Hospital Course Hospital Course: HPI on admission by Marina Sweeney PA-C 02/08: Chief Complaint: Abnormal labs Patient is a 64-year-old female with a past medical history significant for history of SI attempt with Tylenol overdose, depression, anxiety, chronic pain syndrome on OxyContin and oxycodone, hypotension and chronic constipation, who presented to the ED due to abnormal labs. The patient reports that she has been seeing her PCP for low potassium and was started on a 20 mEq supplement daily late last week. Two days ago she had repeat labs which showed a lower potassium of 2.4. The patient reports that she does take Dulcolax 4 times daily for her chronic constipation which then causes diarrhea every few days. She also was on hydrochlorothiazide in the past but has not been taking this recently. She denies any recent vomiting. She is not have any chest pain, shortness of breath or palpitations. Hospital course: Hospital course uncomplicated. Received IV and PO potassium chloride in the ED. K improved to 2.9. Given addl 80meq PO KCl wiht improvement to 4.7. Due to overuse of laxative medication. Discussed the importance of compliance with appropriate bowel regimen. Prescribed miralax and docusate. Can take dulcolax only if no bm if 3 days. Can continue narcotics but would recommend discussion with pcp on reducing dosage if clinically appropriate. She was continued on midodrine for orthostatic hypotension. Continued on cyclobenzaprine, OxyContin, Percocet for chronic pain. Continued on PPI for GERD. Continued on venlafaxine, Topamax, hydroxyzine, desipramine, duloxetine for mood disorder. Follow-up with PCP. Status at Discharge Functional status at discharge: independent ambulation Overall status at discharge: patient is progressing back to baseline Time Attestation Discharge Coordination Time (in mins): 35 Quality: Safe Use of Opioids Does Pt have an Active Cancer Diagnosis on the Problem List?: No Quality: Stroke Does the patient have a stroke diagnosis?: No Physical Exam Vital Signs: Vital Signs: Last Vital Signs Temp 97.8 F 02/09/25 13:00 Pulse 75 02/09/25 13:00 Resp 15 02/09/25 13:00 BP 105/66 02/09/25 13:00 Pulse Ox 96 02/09/25 13:00 O2 Del Method Room Air 02/09/25 13:00 BMI result Body Mass Index 20.4 DS: Data Data Completed and Pending Labs on day of discharge: Laboratory Results - last 24 hr 02/08/25 02/08/25 02/09/25 17:55 21:09 05:50 WBC 7.3 7.1 RBC 4.18 L 3.97 L Hgb 12.8 11.8 L Hct 35.3 L 34.1 L MCV 84.4 85.9 MCH 30.6 29.7 MCHC 36.3 H 34.6 RDW 14.5 14.5 Plt Count 339 341 MPV 10.1 10.4 Immature Gran % (Auto) 0.1 Neut % (Auto) 51.5 Lymph % (Auto) 37.1 [place] % (Auto) 9.8 Eos % (Auto) 0.8 Baso % (Auto) 0.7 Lymph # (Auto) 2.7 [place] # (Auto) 0.7 Eos # (Auto) 0.1 Baso # (Auto) 0.1 Abs Immat Gran (auto) 0.01 Absolute Neuts (auto) 3.7 Absolute Nucleated RBC 0.000 0.000 Nucleated RBC % (auto) 0.0 0.0 Sodium 130 L 135 Potassium 2.3 L* 2.9 L* D Chloride 92 L 104 Carbon Dioxide 27 24 Anion Gap 13 10 L BUN 18 H 14 Creatinine 0.76 0.56 Estim Creat Clear Calc 52.3 71.0 Estimated GFR > 60 > 60 Random Glucose 83 74 Calcium 9.3 8.6 D Magnesium 2.1 2.1 Total Bilirubin 0.2 AST 21 ALT 18 Alkaline Phosphatase 96 Total Protein 7.1 Albumin 4.4 Urine Color Yellow Urine Appearance Clear Urine pH 7.5 Ur Specific [place] 1.010 Urine Protein Negative Urine Glucose (UA) Negative Urine Ketones Negative Urine Blood Negative Urine Nitrite Negative Ur Leukocyte Esterase Trace H Urine RBC 0-2 Urine WBC 0-5 Ur Squamous Epith Cells 0-2 Urine Bacteria None Seen Hyaline Casts 0-2 02/09/25 13:51 WBC RBC Hgb Hct MCV MCH MCHC RDW Plt Count MPV Immature Gran % (Auto) Neut % (Auto) Lymph % (Auto) [place] % (Auto) Eos % (Auto) Baso % (Auto) Lymph # (Auto) [place] # (Auto) Eos # (Auto) Baso # (Auto) Abs Immat Gran (auto) Absolute Neuts (auto) Absolute Nucleated RBC Nucleated RBC % (auto) Sodium Potassium 4.6 D Chloride Carbon Dioxide Anion Gap BUN Creatinine Estim Creat Clear Calc Estimated GFR Random Glucose Calcium Magnesium Total Bilirubin AST ALT Alkaline Phosphatase Total Protein Albumin Urine Color Urine Appearance Urine pH Ur Specific [place] Urine Protein Urine Glucose (UA) Urine Ketones Urine Blood Urine Nitrite Ur Leukocyte Esterase Urine RBC Urine WBC Ur Squamous Epith Cells Urine Bacteria Hyaline Casts Discharge Plan Discharge Anticipated Discharge Date/Time: 02/09/25 14:16 Patient Disposition: Home, Self-Care Discharge Diagnosis: Acute hypokalemia Referrals: Miguel Huertas III, MD [Primary Care Provider, Medical] - 1 Week Discharge Medications: New docusate sodium 100 mg capsule 100 mg PO DAILY Qty: 90 1RF polyethylene glycol 3350 17 gram/dose powder 17 g PO DAILY Qty: 238 4RF potassium chloride 20 mEq packet 20 meq PO DAILY Qty: 7 0RF Continued ibuprofen 800 mg tablet 1 tab PO TID PRN (Reason: Muscle Spasm) pantoprazole 40 mg tablet,delayed release (DR/EC) 1 tab PO DAILY@0630 hydroxyzine HCl 25 mg tablet 25 mg PO DAILY midodrine 2.5 mg tablet 1 tab PO BID topiramate 100 mg tablet 1 tab PO QID cyclobenzaprine 10 mg tablet 10 mg PO TID PRN (Reason: muscle spasms) folic acid 1 mg tablet 1 mg PO DAILY oxycodone-acetaminophen 7.5-325 mg tablet 1 tab PO TID PRN (Reason: Pain) desipramine 100 mg tablet 100 mg PO BEDTIME duloxetine 60 mg capsule,delayed release(DR/EC) 60 mg PO BEDTIME Emgality Pen 120 mg/mL pen injector 120 mg subcut Q28D hydroxyzine HCl 25 mg tablet 50 mg PO BEDTIME oxycodone 20 mg tablet,oral only,ext.rel.12 hr 20 mg PO Q8H venlafaxine 150 mg capsule,extended release 24hr 150 mg PO DAILY Diet: Advance to usual diet Activity on Discharge: As tolerated Stand Alone Forms: Patient Portal Discharge page Print Language: Tristanian Care Plan Goals: Do not take dulcolax regularly Start miralax and docusate 100mg daily. If diarrhea, hold If no BM in 3 days, take 1 dulcolax Take potassium cloride 20meq daily strarting tomorrow morning (02/10) x7 days. Check lab in 1 week- ordered, just present to the lab at any [facility] location Recommend discussing narcotic taper given high dose oxycodone use. Follow up with pcp. Health Concerns: High dose opioid use resulting in severe constipation Overuse of laxative medications Diarrhea resulting in severe hypokalemia Plan of Treatment: Adjust bowel regimen Continue potassium chloride and recheck lab in 1 week Follow up with pcp, consider reducing dose of oxycodone Assessment: See above, see dc summary
[2025-02-09 15:15] VITALS: BP 117/78; PULSE 76; RESP 15; TEMP 36.6; O2SAT 100
[2025-02-09 15:36] VITALS: BP 117/78; PULSE 76; RESP 15; TEMP 36.6; O2SAT 100
== END 2025-02-09 15:43 | disposition home or self-care (01) | DRG 918 ==
LOC: HO.ED 21:47 → HO.EDOVER 22:44
PROVIDERS: Admitting Provider Physician Assistant; Emergency Provider Emergency Medicine Emergency Medical Services; PCP Internal Medicine; Visit Provider Physician Assistant
DX: T47.2X1A Poisoning by stimulant laxatives, accidental (unintentional), initial encounter (principal); E87.6 Hypokalemia; Z91.51 Personal history of suicidal behavior; K59.09 Other constipation; K59.03 Drug induced constipation; T40.2X5A Adverse effect of other opioids, initial encounter; I95.1 Orthostatic hypotension; G89.4 Chronic pain syndrome; Z87.891 Personal history of nicotine dependence; Z79.891 Long term (current) use of opiate analgesic; Z79.899 Other long term (current) drug therapy
CPT/HCPCS: 36415; 80048; 80053; 81001; 83735; 84132; 85025; 85027; 93005; 99285; J1650; J3480

== ENCOUNTER → 2025-02-08 18:00 | Outpatient (BNV) | payer OTHER, MEDICAID, SELFPAY | PROVIDERS: Admitting Provider Physician Assistant; Emergency Provider Emergency Medicine Emergency Medical Services; PCP Internal Medicine; Visit Provider Internal Medicine Cardiovascular Disease | DX: R94.31 Abnormal electrocardiogram [ECG] [EKG] (principal); E87.6 Hypokalemia | CPT/HCPCS: 93010 ==

== ENCOUNTER → 2025-02-08 22:00 | Outpatient (BNV) | payer OTHER, MEDICAID, SELFPAY | PROVIDERS: Admitting Provider Physician Assistant; Emergency Provider Emergency Medicine Emergency Medical Services; PCP Internal Medicine; Visit Provider Physician Assistant | DX: E87.6 Hypokalemia (principal); R53.1 Weakness | CPT/HCPCS: 99223; 99239; 99499 ==